=== PATIENT | male | born 1945 | race Hispanic/Latino ===

== ENCOUNTER 2022-02-25 09:11 | Observation (INO) | payer OTHER ==
--- NOTE | 2022-02-20 15:57 | RAD REPORT ---
EXAM DESCRIPTION: RAD - Chest Pa And Lat (2 Views) - 02/20/2022 3:31 pm CLINICAL HISTORY: pre op for surgery Chest pain. COMPARISON: Chest Pa And Lat (2 Views) dated 06/20/2019; CHEST SINGLE VIEW dated 04/03/2008 TECHNIQUE: PA and lateral views of the chest were obtained. FINDINGS: The lungs are hyperexpanded compatible with COPD. The heart is upper limit of normal in si ze. No fracture or aggressive bony process. IMPRESSION: COPD without acute process identified. The USPSTF recommends annual screening for lung cancer with low-dose CT (LDCT) in adults aged 50 to 8 0 years who have a 20 pack-year smoking history and currently smoke or have quit within the past 15 y ears.
[2022-02-20 15:58] LABS: Hematocrit 34.8 % (39.6-49.0); Lymphocytes % 21.5 % (15.3-44.8); MPV 8.1 fL (7.6-11.3); RBC Red Blood Cell Count 4.29 M/uL (4.33-5.43)
[2022-02-20 15:59] LABS: Protime INR 1.52
[2022-02-20 16:04] LABS: Potassium 4.7 mmol/L (3.5-5.1)
[~2022-02-25 09:11] MED LIST: AMPICILLIN SODIUM 2 GM in NA CHLORIDE 0.9% 100 ML IVPB ONE; Gentamicin Inj 240 MG in NA CHLORIDE 0.9% 100 ML IVPB ONE
[2022-02-25] MEDS ORDERED: NA CHLORIDE 0.9% 1,000 ML ONE (09:34)
[2022-02-25] MEDS ORDERED: LIDOCAINE 1% MPF 5 ML VIAL ONE (12:06)
[2022-02-25] MEDS ORDERED: propofoL 200 MG/20 ML VIAL IV ONE (12:06)
[2022-02-25] MEDS ORDERED: FENTANYL CITR 100 MCG/2 ML ONE ×2 (12:06→13:33)
[2022-02-25] MEDS ORDERED: NS 0.9% VIAL 10 ML ONE (12:48)
[2022-02-25] MEDS ORDERED: EPHEDRINE SULF 50 MG/ML VIAL ONE (12:48)
[2022-02-25] MEDS ORDERED: dexAMETHasone 10 MG/ML VIAL ONE (12:49)
[2022-02-25] MEDS ORDERED: KETOROLAC 30 MG/ML INJ ONE (12:49)
[2022-02-25] MEDS ORDERED: ONDANSETRON 4 MG/2 ML VIAL ONE (13:02)
[2022-02-25] MEDS ORDERED: ROCURONIUM 50 MG/5 ML VIAL IV ONE (13:02)
[2022-02-25] MEDS ORDERED: Mastisol Adhesive Liq ONE (14:55)
[2022-02-25] MEDS ORDERED: OPIUM/BELLADONNA SUPPOS (30-16.2 MG) PR ONE ×2 (15:35→16:00)
[2022-02-25 16:03] VITALS: O2SAT 98
[2022-02-25] MEDS ORDERED: CODEINE 30MG/APAP 300MG TAB ONE (17:09)
[2022-02-25] MEDS ORDERED: Magnesium Sulfate 2gm IVPB 2 G/50 ML BAG IV ONE (17:52)
[2022-02-25] MEDS ORDERED: CODEINE 30MG/APAP 300MG TAB PO PRN (17:52)
[2022-02-25] MEDS ORDERED: ONDANSETRON 4 MG/2 ML VIAL IV PRN (17:52)
[2022-02-25] MEDS ORDERED: SODIUM CHL 0.9% IRR SOLN 2000 ML IRR SCH (18:00)
[2022-02-25] MEDS ORDERED: GLUCAGON 1 MG/VIAL IM PRN (18:17)
[2022-02-25] MEDS ORDERED: D50W 25 GM/50 ML SYRINGE IV PRN (18:17)
--- OUTSIDE RECORDS SUMMARY | 2022-02-25 18:51 | XMS REPORT | Continuity of Care Document ---
:1945 Author Organization [facility] t Address [address] [place] [address] Care Team Providers Name Role Phone Unavailable Unavailable Unavailable Problems This patient has no known problems. Allergies, Adverse Reactions, Alerts This patient has no known allergies or adverse reactions. Medications This patient has no known medications. Procedures This patient has no known procedures. Encounters Start End Encounter Admission Attending Care Care Encounter Source Date/Time Date/Time Type Type Clinicians Facility Department ID 2022-02-18 Outpatient [facility] [id number] [facility] 11:29:02 [id number] 2022-01-16 Outpatient [facility] [id number] [facility] 13:08:02 [id number] [facility] 2021-11-20 Outpatient [facility] [id number] [facility] 14:25:16 [id number] [facility] 2022-01-16 2022-01-16 ambulatory [facility] [id number] [facility] 2021-11-19 2021-11-19 ambulatory [facility] [id number] [facility] 2021-11-05 2021-11-05 ambulatory [facility] [id number] [facility] 2021-10-31 2021-10-31 ambulatory [facility] [id number] [facility] 2021-10-22 2021-10-22 ambulatory [facility] [id number] [facility] 2021-10-17 2021-10-17 ambulatory [facility] [id number] [facility] 2021-10-14 2021-10-14 amb[facility] [id number] [facility] 2021-10-09 2021-10-09 ambulatory [facility] [id number] [facility]00 [facility] Results This patient has no known results.
[2022-02-25] MEDS: NA CHLORIDE 0.9% 1,000 ML IV SCH (18:53)
[2022-02-25] MEDS ORDERED: SODIUM CHL 0.9% IRR SOLN 2000 ML IRR PRN (18:58)
[2022-02-25] MEDS ORDERED: ATORVASTATIN 40 MG TAB PO SCH (21:00)
[2022-02-25] MEDS: INSULIN -REGULAR HUMAN 50 UNIT/0.5 ML ML SQ SCH (21:59)
[2022-02-25 23:24] VITALS: BMI 39.9
[2022-02-26] MEDS: NA CHLORIDE 0.9% 1,000 ML IV SCH ×2 (03:35→11:19)
[2022-02-26] MEDS ORDERED: METOPROLOL XL 100 MG TAB PO SCH (06:00)
[2022-02-26 06:01] LABS: Absolute Lymphocytes (CBC) 0.8 K/uL (0.7-4.9); Hematocrit 34.3 % (39.6-49.0); Lymphocytes % 6.2 % (15.3-44.8); MPV 7.8 fL (7.6-11.3)
[2022-02-26 06:06] LABS: Phosphorus 2.3 mg/dL (2.5-4.9); Potassium 4.6 mmol/L (3.5-5.1)
[2022-02-26] MEDS: INSULIN -REGULAR HUMAN 50 UNIT/0.5 ML ML SQ SCH ×2 (07:30→12:05)
[2022-02-26] MEDS ORDERED: GLIMEPIRIDE 2 MG TABLET PO SCH (08:00)
[2022-02-26] MEDS ORDERED: FUROSEMIDE 20 MG/ 2ML VIAL IV ONE (08:05)
[2022-02-26 08:06] LABS: Blood Morphology Comment NOT SEEN (NOT SEEN); Platelet Estimate ADEQ; Platelets, Giant FEW; White Blood Cell Scan OK (OK)
[2022-02-26] MEDS ORDERED: VALSARTAN 160 MG TAB PO SCH (09:00)
[2022-02-26 12:00] VITALS: BP 110/61; TEMP 98.7
[2022-02-26 12:43] LABS: Potassium 4.6 mmol/L (3.5-5.1)
--- NOTE | 2022-02-26 12:43 | OP ---
Surgeon: LJ FRANCO Preoperative Diagnoses: 1.BPH with lower urinary tract obstruction. 2.Detrusor instability. Postoperative Diagnoses: 1.BPH with lower urinary tract obstruction. 2.Detrusor instability. Principal Procedures: 1.Bipolar transurethral resection of the prostate. 2.Cystoscopy and right ureteral stent placement tethered. Indication For Procedure: Mr. Gallego is a 76-year-old gentleman with type 2 diabetes, hyperlipidem ia, atrial fibrillation, on Xarelto, who stopped it 5 days ago and initially presented with gross hem aturia, but no sign of urothelial malignancy or stone, but only complex renal cysts, in the setting o f residual significant lateral lobar hypertrophy seen cystoscopically. He had previously undergone p rior TURP by Dr. Helton with severe residual lower urinary tract obstructive symptoms, but also signif icant detrusor instability observed on urodynamics evaluation. As a result, the patient was counsele d extensively about the potential for urge incontinence postoperatively and the need for eventual med ical management once we relieved the obstruction. He agreed and proceeds and presents today for eval uation. Procedure In Detail: The patient was consented in the preoperative holding area before being transfe rred to the operative suite, where general anesthesia was induced. He was given ampicillin and genta micin 240 mg IV antimicrobial prophylaxis, and pneumo boots were provided for DVT prophylaxis. He wa s placed in the lithotomy position, padded, and secured to the table appropriately. His genitalia we re prepped using Hibiclens and he was draped in standard fashion. The case was begun using urethral sounds to dilate the meatus and fossa navicularis to 30-Romanian and then using the 26-Romanian resectosc ope and the visual obturator, his urethra was traversed and bladder entered with ease. There was sti ll significant residual lateral lobar hypertrophy with some anterior lobar overhang as well as median lobar projection abutting the ureteral orifices bilaterally with an elevated median bar down to the level of the verumontanum. As a result, I began the case with the ureteral orifices under direct vis ion and resected the projecting median lobe until it was flat with the bladder neck at the level of t he trigone. The remainder of the median lobe within the central portion was resected and then I rese cted the median bar to create a smooth trough down to the verumontanum. Once this was done, I then t urned my attention to the left lateral lobe and resected the lateral lobe in stages given the very lo ng prostatic urethral length, likely at least 4-5 cm in length. As a result, I resected the intraves ically projecting component of the lateral lobe on the left side at the bladder neck and taking that to the anterior lobar overhang. I then resected the median component of the lateral lobar entry uret hral projection before then resecting the overlapping component of the apical lateral lobar hypertrop hy until the left side of the prostate was completely resected and widely patent. Ellik evacuation o f the chips was performed, and a careful search for bleeding and fulguration was likewise performed u ntil the left side was virtually hemostatic. I then turned my attention to the right side where I pe rformed a similar resection starting at the bladder neck and then at the apex of the prostate, removi ng the intervening tissue from the verumontanum up to the anterior zone of the prostate until the pro static fossa from the verumontanum until the bladder neck was widely patent. All prostate chips agai n, were Ellik evacuated from the bladder, and fulguration was performed extensively due to lots of oo zing vessels. Continued resection was then performed for any residual tissue bulging into the prosta tic urethral lumen in order to create a smooth channel throughout. In the end, after about an hour a nd 45 minutes of resection, the channel was nicely created and completely hemostatic with the bladder decompressed. With efforts to fulgurate some capillary bleeding at the cut edge of the bladder neck from the prostatic urethra with the bladder decompressed, the upper part of the loop electrode did c ontact the collapsed bladder, which was now invaginating into the bladder neck at this point, resulti ng in mild fulguration of the right ureteral orifice. While it remained patent and was effluxing uri ne, to avoid the development of stenosis later and hydronephrosis, I then removed the resectoscope an d switched it out for a 22-Romanian cystoscope before utilizing a Sensor wire and a 5-Romanian ureteral a ccess catheter to gain access into the collecting system. I then passed a 6-Romanian x 26 cm double-J right ureteral stent with ease and a coil was formed within his bladder left on its tether. Fluorosc opic imagery was not used in this case; but the stent was simply placed under seal and did go up very smoothly and easily. As a result, since there was no ongoing bleeding, I removed the cystoscope and placed a 22-Romanian 3-way Raman catheter into his bladder with ease. Approximately 50 cc of sterile water was placed in the balloon, and the tether of the right ureteral stent was then taped to the hea d of his penis using Mastisol and Steri-Strips. The patient was then taken out of the lithotomy posi tion, the catheter was placed to moderate traction, and he was awakened from general anesthesia befor e being transferred to a stretcher. He was then transferred to the recovery room in good condition. Complications: Mild fulguration of the right ureteral orifice, nonobstructive. Discharge Disposition: He should follow up in the Urology Clinic on Thursday for catheter removal and voiding trial. Since the urodynamics evaluation done preoperatively did demonstrate definitive detru sor instability, he will likely benefit from post catheter removal anticholinergic therapy; so I will send a prescription for oxybutynin 5 mg extended release tablets for him to start taking after the c atheters were removed once he demonstrates he is able to void adequately. The stent on a tether may also be removed simultaneous with the catheter removal on Thursday or Thursday of next week. I will dis charge him with 7 days of an antimicrobial for prophylaxis. LIANG/ROB Voice ID: [id number] Report ID: [id number]
--- NOTE | 2022-02-26 12:52 | HP ---
Date of Admission: 02/25/2022 Chief Complaint: Right lower extremity fasciculation or uncontrollable movements. History Of Present Illness: Mr. Gallego is a 76-year-old gentleman with hypertension, type 2 diabet es, and hyperlipidemia, who presented for management of obstructive urinary symptoms due to BPH with associated detrusor instability, resulting in significant frequency and urgency as well as urge incon tinence. He underwent bipolar transurethral resection of the prostate today, which was relatively un complicated, only requiring a right ureteral stent due to gentle fulguration of the mucosa surroundin g the right ureteral orifice, with the case time lasting approximately 2 hours in total time, where t he patient was in the lithotomy position. He was then awakened from general anesthesia and transferr ed to the recovery room in good condition and was continued on continuous bladder irrigation with nor mal saline where his urine remained very light pink to clear. However, prior to discharge home, a co uple of hours later, the patient noted some relatively uncontrollable movements of his right lower ex tremity, mostly his foot, but he also felt like it was his lower leg as well. He would not be able t o stop the movements if he cognitively made an effort, but otherwise the fasciculations seem to occur without his direct control. He denied any associated pain or discomfort force or associated swellin g of the lower extremity that he could observe. Past Medical History: Hypertension; type 2 diabetes; hyperlipidemia; atrial fibrillation, on Xarelto . Past Surgical History: The patient had a history of a prior transurethral resection of the prostate performed by Dr. Helton. Allergies: NO KNOWN DRUG ALLERGIES. Medications: As recorded. Physical Examination: General: The patient was well-appearing and in no acute distress. He was alert, awake, oriented x3. There was no dyspnea or signs of respiratory distress with him sitting in a reclined position within the stretcher. Abdomen: Nontender and nondistended. Genitourinary: His genitalia contained a 22-Greek 3-way urethral Raman catheter on a slow drip CBI with the efflux of urine being light pink. Extremities: On examination of the right lower extremity, the patient had normal sensation bilateral ly right relative to the left lower extremity, both to soft touch, and he had no tenderness to squeez ing of the calf declining any sign of Charisse sign. He had normal muscular strain with calf flexion an d extension. Assessment And Recommendations: Mr. Gallego is a 76-year-old gentleman with diabetes type 2, hypert ension, hyperlipidemia, and atrial fibrillation, previously on Xarelto, now status post extensive bip olar transurethral resection of the prostate due to significantly enlarged prostate with detrusor ins tability causing obstructive and irritative lower urinary symptoms, now with right lower extremity fa sciculations, suspected to be of a neuropathic origin. I consulted Dr. Bazan, neurologist, who instructed that this was very likely to have been from the time spent in lithotomy position with the anatomy unique to the right lower extremity as well as his diabetes likely subjecting the nerves of that lower extremity to a degree of impact that is now resu lting in the fasciculations. He estimated this would likely resolve in short order, within the next few hours, and recommended magnesium therapy. As a result, I did the followin.Magnesium sulfate 2 g IV x1 dose. 2.He would be continued on normal saline IV fluids and CBI with intermittent manual irrigation as ne sandraary. 3.Tylenol with Codeine will be provided for pain management as necessary, though the patient was hav ing no pain, and Zofran is available for antiemetic if necessary. 4.He will be given a diabetic diet. 5.We will check labs in the morning including a CBC, BMP, magnesium, phosphorus, and ionized calcium levels. 6.Should his fasciculations continue or he have other sign of pain, Dr. Bazan would be requested to formally consult in the morning. 7.We will also request the nurses to perform every 4 hours neurovascular checks throughout the even ng and notify me if any progressive worsening develops. We anticipate discharge tomorrow after a period of observation with the urethral Rmaan catheter in pl [place]. LIANG/MODL Voice ID: [id number]
--- NOTE | 2022-02-26 13:22 | P.PN ---
Date of Service: 02/26/22 76-year-old gentleman type II diabetic with atrial fibrillation on Xarelto, hypertension and hyperlipidemia admitted overnight for observation due to complaints of right lower extremity fasciculations in the immediate postoperative period. He acknowledges this morning that since arrival to the floor last night, he has had no further fasciculations. He had normal muscular strength and sensation throughout. He was given 2 g of magnesium sulfate, and his magnesium level this morning is 2.0. Incidentally observed was hyponatremia with a sodium of 125. The procedure was performed in a bipolar fashion, using normal saline, and he was admitted overnight with normal saline running at 125 cc an hour. As a result, I recommended 20 mg of Lasix, which was administered IV this morning, and we repeated his sodium at noon. Repeat sodium minimally improved at 126. Patient was otherwise comfortable and mentating normally, communicating appropriately. Examination: Alert, awake, oriented x3 in no acute distress No dyspnea or signs of respiratory distress Comfortable and well-appearing Abdomen soft, nontender Urethral catheter in place draining light pink urine on slow drip CBI No Homans' sign Assessment and recommendations: 76-year-old gentleman type II diabetic with atrial fibrillation on Xarelto, hypertension and hyperlipidemia with right lower extremity fasciculations postoperatively that resolved without sensory deficit, and with normal mentation throughout but with mild hyponatremia persistent despite 20 mg IV Lasix, postop day 1 status post bipolar transurethral resection of the prostate (procedure done in saline). -We will request the opinion of the hospital director of speech pathology to determine neck steps in evaluation and appropriateness for discharge given his ongoing hyponatremia -Otherwise, he is eligible for discharge from a surgical perspective with the Raman catheter in place. -Prescriptions already sent for antibiotics, Bactrim, as well as Tylenol 3 and oxybutynin for him to take once the catheter is removed if he has urinary frequency/urgency and urge incontinence.
--- NOTE | 2022-02-26 14:10 | P.CNS ---
Date of Consult: 02/26/22 Reason for Consult: Hyponatremia Requesting Physician: Xavier Diaz Chief Complaint: Bipolar TURP History of Present Illness: Pt is a 76yo who was admitted to the hospital for a TURP. Incidentally, pt with hyponatremia. Allergies No Known Allergies Allergy (Verified 02/25/22 09:54) Home medications list reviewed: Yes Home Medications: Atorvastatin Calcium [Lipitor] 40 mg PO BEDTIME 08/24/17 Glimepiride 2 mg PO DAILY 08/24/17 Irbesartan [Avapro] 300 mg PO DAILY 08/24/17 Metoprolol Succinate [Toprol Xl] 25 mg PO [id number] 08/24/17 Rivaroxaban [Xarelto] 20 mg PO DAILY 08/24/17 Tamsulosin [Flomax*] 0.4 mg PO BEDTIME 08/24/17 Aspirin [Aspirin EC 81 MG] 1 tab PO DAILY 02/20/22 Codeine/APAP [Tylenol W/Codeine #3 tab] 1 tab PO Q6HP PRN #12 tab 02/25/22 Oxybutynin Chloride [Ditropan Xl] 5 mg PO DAILY PRN #30 tab.er.24 02/25/22 Sodium Chloride Tab [Sodium Chloride*] 1 gm PO BID #60 tab 02/26/22 - Past Medical/Surgical History Diabetic: Yes -: Diabetes -: HTN -: HLD -: BPH -: Stent placement 10 yrs ago -: TURP - Family History Father Family History: Reviewed- Non-Contributory - Social History Smoking Status: Current every day smoker Alcohol use: No CD- Drugs: No Caffeine use: Yes Place of Residence: Home Review of Systems 10-point ROS is otherwise unremarkable Physical Examination Temp Pulse Resp BP Pulse Ox 98.7 F 87 20 110/61 100 02/26/22 11:59 02/26/22 11:59 02/26/22 11:59 02/26/22 11:59 02/26/22 11:59 General: Alert, In no apparent distress, Oriented x3 HEENT: Atraumatic, PERRLA, Mucous membr. moist/pink, EOMI, Sclerae nonicteric Neck: Supple, 2+ carotid pulse no bruit, No LAD, Without JVD or thyroid abnormality Respiratory: Clear to auscultation bilaterally, Normal air movement Cardiovascular: Regular rate/rhythm, Normal S1 S2 Gastrointestinal: Normal bowel sounds, No tenderness Musculoskeletal: No tenderness Integumentary: No rashes Neurological: Normal gait, Normal speech, Normal tone, Normal affect Lymphatics: No axilla or inguinal lymphadenopathy Laboratory Data (last 24 hrs) 02/26/22 11:39: Sodium 126 L, Potassium 4.6, BUN 21 H, Creatinine 1.70 H, Glucose 232 H 02/26/22 05:35: Sodium 125 L, Potassium 4.6, BUN 22 H, Creatinine 1.46 H, Gluc ose 179 H, Phosphorus 2.3 L, Magnesium 2.0 02/26/22 05:35: WBC 12.2 H D, Hgb 11.3 L, Hct 34.3 L, Plt Count 276 - Problems (1) Hyponatremia Current Visit: Yes Status: Acute (2) HTN (hypertension) Current Visit: Yes Status: Acute (3) BPH loc w urin obs/LUTS Current Visit: Yes Status: Acute
== END 2022-02-26 14:45 | disposition home or self-care (01) ==
LOC: OR 09:11 → 2ND 18:48
PROVIDERS: ADMIT Urology; ATTEND Urology
PROC: 0VT08ZZ Resection of Prostate, Via Natural or Artificial Opening Endoscopic (ICD-10-PCS; 2022-02-25)
PROC: 0T768DZ Dilation of Right Ureter with Intraluminal Device, Via Natural or Artificial Opening Endoscopic (ICD-10-PCS; principal; 2022-02-25 10:45)
DX: N40.1 Benign prostatic hyperplasia with lower urinary tract symptoms (principal); N13.8 Other obstructive and reflux uropathy; N99.81 Other intraoperative complications of genitourinary system; Y65.8 Other specified misadventures during surgical and medical care; Y82.8 Other medical devices associated with adverse incidents; Y92.234 Operating room of hospital as the place of occurrence of the external cause; N32.81 Overactive bladder; N39.41 Urge incontinence; R25.3 Fasciculation; E87.1 Hypo-osmolality and hyponatremia; I48.91 Unspecified atrial fibrillation; I10 Essential (primary) hypertension; E11.9 Type 2 diabetes mellitus without complications; N28.1 Cyst of kidney, acquired; E78.5 Hyperlipidemia, unspecified; I25.10 Atherosclerotic heart disease of native coronary artery without angina pectoris; G47.33 Obstructive sleep apnea (adult) (pediatric); E66.9 Obesity, unspecified; Z68.39 Body mass index [BMI] 39.0-39.9, adult; F17.200 Nicotine dependence, unspecified, uncomplicated; Z79.01 Long term (current) use of anticoagulants; Z79.82 Long term (current) use of aspirin; Z79.899 Other long term (current) drug therapy; Z85.038 Personal history of other malignant neoplasm of large intestine; Z20.822 Contact with and (suspected) exposure to COVID-19
CPT/HCPCS: 87088; 85025 ×2; 87086; 80048 ×3; 36415 ×2; 83735; 84100; 85610; 82947 ×5; 88305; 82330; 71046; 52332; 52630; U0002; J2704; J1940; J1815 ×2; J1580; J3010 ×2; J1100; J3475; J7030 ×4; J2405; J0290; G0379; G0378 ×2

== ENCOUNTER 2022-03-08 01:55 | Emergency (ER) | payer OTHER ==
--- OUTSIDE RECORDS SUMMARY | 2022-03-08 01:58 | XMS REPORT | Continuity of Care Document ---
:1945 Author Organization [facility] t Address [address] [address] Care Team Providers Name Role Phone Unavailable Unavailable Unavailable Problems This patient has no known problems. Allergies, Adverse Reactions, Alerts This patient has no known allergies or adverse reactions. Medications This patient has no known medications. Procedures This patient has no known procedures. Encounters Start End Encounter Admission Attending Care Care Encounter Source Date/Time Date/Time Type Type Clinicians Facility Department ID 2022-02-18 Outpatient [facility] [id number] [facility] 11:29:02 [facility] 2022-01-16 Outpatient [facility] [id number] [facility] 13:08:02 [facility] 2021-11-20 Outpatient [facility] [id number] [facility] 14:25:16 [id number] [facility] 2022-01-16 2022-01-16 ambulatory [facility] [id number] [facility] 00:00:00 00:00:00 [facility] 2021-11-19 2021-11-19 ambulatory [facility] [id number] [facility] 00:00:00 00:00:00 [facility] 2021-11-05 2021-11-05 ambulatory [facility] [id number] [facility] 00:00:00 00:00:00 [facility] 2021-10-31 2021-10-31 ambulatory [facility] [id number] [facility] 00:00:00 00:00:00 [facility] 2021-10-22 2021-10-22 ambulatory [facility] [id number] [facility] 00:00:00 00:00:00 [facility] 2021-10-17 2021-10-17 ambulatory [facility] [id number] [facility] 00:00:00 00:00:00 [facility] 2021-10-14 2021-10-14 ambulatory [facility] [id number] [facility] 00:00:00 00:00:00 [facility] 2021-10-09 2021-10-09 ambulatory [facility] [id number] [facility] 00:00:00 00:00:00 [facility] Results This patient has no known results.
[2022-03-08] MEDS ORDERED: LIDOCAINE VISCOUS 2% SOLN 15 ML UDC ONE (02:36)
[2022-03-08 02:39] LABS: Absolute Lymphocytes (CBC) 0.8 K/uL (0.7-4.9); Hematocrit 25.4 % (39.6-49.0); Lymphocytes % 7.5 % (15.3-44.8); MPV 6.8 fL (7.6-11.3); RBC Red Blood Cell Count 3.19 M/uL (4.33-5.43)
[2022-03-08 02:51] LABS: Potassium 4.2 mmol/L (3.5-5.1)
--- NOTE | 2022-03-08 03:29 | EDPHYS ---
Physician Documentation [facility] Name: Marshal Gallego Age: 76 yrs Sex: Male : 1945 Arrival Date: 03/08/2022 Time: 01:59 Bed 4 Private MD: ED Physician De Fernandez HPI: 03/08 03:29 This 76 yrs old Male presents to ER via EMS with complaints of unable to ms3 urinate. 03:29 The patient presents with urinary symptoms, retention. Onset: The symptoms/episode ms3 began/occurred 12 PM. Modifying factors: The symptoms are alleviated by nothing, the symptoms are aggravated by nothing. Associated signs and symptoms: Pertinent positives: abdominal pain, hematuria, Pertinent negatives: fever. Severity of symptoms: At their worst the symptoms were moderate, a " 6" out of "10", in the emergency department the symptoms are unchanged. Historical: - Allergies: 02:01 No Known Allergies; sm5 - PMHx: 02:01 Diabetes mellitus; Hypertensive disorder; sm5 - PSHx: 02:01 TURP; sm5 - Immunization history:: Client reports receiving the 2nd dose of the Covid vaccine. - Social history:: Smoking status: Patient denies any tobacco usage or history of. Patient/guardian denies using alcohol. ROS: 03:29 Constitutional: Negative for fever, and chills. Cardiovascular: Negative for chest ms3 pain, and palpitations. Respiratory: Negative for shortness of breath, cough, wheezing, and pleuritic chest pain, MS/Extremity: Negative for injury and deformity, Skin: Negative for injury, rash, and discoloration, Neuro: Negative for headache, weakness, numbness, tingling. 03:29 Abdomen/GI: Positive for 03:29 : Positive for difficulty urinating. ms3 03:29 All other systems are negative. Exam: 03:29 Constitutional: This is a well developed, well nourished patient who is awake, alert, ms3 and in no acute distress. Head/Face: Normocephalic, atraumatic. Chest/axilla: Normal chest wall appearance and motion. Nontender with no deformity. Cardiovascular: Regular rate and rhythm with a normal S1 and S2. No gallops, murmurs, or rubs. Normal PMI, no JVD. No pulse deficits. Respiratory: Lungs have equal breath sounds bilaterally, clear to auscultation and percussion. No rales, rhonchi or wheezes noted. No increased work of breathing, no retractions or nasal flaring. Skin: Warm, dry with normal turgor. Normal color with no rashes, no lesions, and no evidence of cellulitis. Psych: Awake, alert, with orientation to person, place and time. Behavior, mood, and affect are within normal limits. 03:29 Abdomen/GI: Inspection: abdomen appears normal, Bowel sounds: normal, Palpation: mild abdominal tenderness, in the suprapubic area. Vital Signs: 02:00 BP 180 / 85; Pulse 107; Resp 18; Temp 97.8(O); Pulse Ox 99% on R/A; Weight 126.1 kg; sm5 Height 5 ft. 11 in. (180.34 cm); Pain 10/10; 02:30 BP 169 / 84; Pulse 87; Resp 18; Pulse Ox 100% on R/A; sm5 03:24 BP 165 / 90; Pulse 96; Resp 18; Temp 97.8; Pulse Ox 96% on R/A; 2 04:30 BP 154 / 70; Pulse 79; Resp 17; Pulse Ox 100% on R/A; sm5 05:30 BP 152 / 70; Pulse 92; Resp 18; Pulse Ox 99% on R/A; 5 02:00 Body Mass Index 38.77 (126.10 kg, 180.34 cm) 5 MDM: 02:06 Patient medically screened. ms3 02:20 ED course: Dr Diaz called. no answer.. ms3 03:29 Differential diagnosis: nonspecific abdominal pain, UTI, urinary retention. Data ms3 reviewed: vital signs, nurses notes. Data interpreted: Pulse oximetry: on room air is 96 %. Interpretation: normal. Counseling: I had a detailed discussion with the patient and/or guardian regarding: the historical points, exam findings, and any diagnostic results supporting the discharge/admit diagnosis, lab results, the need to transfer to another facility. ED course: Discussed need for transfer with patient and his . They understand/ agree with plan. Patient remains in stable condition.. 03:29 ED course: Attempted to call Dr Diaz and voicemail left.. ms3 03/08 02:10 Order name: CBC with Diff; Complete Time: 02:52 ms3 03/08 02:10 Order name: BMP; Complete Time: 03:08 ms3 03/08 03:16 Order name: Osmolality, Serum; Complete Time: 04:28 la1 03/08 03:16 Order name: Urine Osmolality; Complete Time: 04:44 la1 03/08 03:16 Order name: Urine Sodium Random; Complete Time: 04:12 la1 03/08 03:16 Order name: Urine Potassium Random; Complete Time: 04:12 la1 03/08 03:19 Order name: COVID-19 SARS RT PCR (Document "Date of Onset" if Symptomatic); Complete la Time: 04:44 03/08 03:51 Order name: Urine Microscopic Only; Complete Time: 04:12 EDMS 03/08 04:14 Order name: Urine Culture EDMS Administered Medications: 05:46 Drug: morphine 4 mg Route: IVP; Site: right antecubital; sm5 06:37 Follow up: Response: No adverse reaction sm5 Disposition Summary: 03/08/22 03:28 Transfer Ordered Transfer Location: Other Acute Care Facility ms3 Reason: Higher level of care ms3 Condition: Stable ms3 Problem: new ms3 Symptoms: are unchanged ms3 Accepting Physician: Arturo Rueda(03/08/22 06:38) sm5 Diagnosis - Hyponatremia ms3 - hematuria ms3 - urine retention ms3 Forms: - Medication Reconciliation Form ms3 - SBAR form ms3 Signatures: Dispatcher [employer] EDMS Demond Shell FNP-[facility] DO DO ms3 Mihaela Mercado RN RN sm5 Corrections: (The following items were deleted from the chart) 03:31 03:29 Constitutional: Negative for fever, and chills. Cardiovascular: Negative for ms3 chest pain, and palpitations. Respiratory: Negative for shortness of breath, cough, wheezing, and pleuritic chest pain, : Negative for injury, bleeding, discharge, and swelling, MS/Extremity: Negative for injury and deformity, Skin: Negative for injury, rash, and discoloration, Neuro: Negative for headache, weakness, numbness, tingling. ms3 03:51 02:11 URINALYSIS+U.LAB.BRZ ordered. EDMS EDMS 06:38 03:28 Marybeth, Arturo ms3 sm5
--- NOTE | 2022-03-08 03:29 | ER ---
Nurse's Notes [facility] Name: Marshal Gallego Age: 76 yrs Sex: Male : 1945 Arrival Date: 03/08/2022 Time: 01:59 Bed 4 Private MD: Diagnosis: Hyponatremia;hematuria;urine retention Presentation: 03/08 02:00 Chief complaint: EMS states: pt had TURP on 02/25, currie removed a few days later. pt sm5 stated he has been having blood clots when urinating. at 1pm, pt stated he had burning when urinating and has been unable to urinate since and has pain in his groin area. Coronavirus screen: Vaccine status: Patient reports receiving the 2nd dose of the covid vaccine. Ebola Screen: No symptoms or risks identified at this time. Initial Sepsis Screen: Does the patient meet any 2 criteria? No. Patient's initial sepsis screen is negative. Does the patient have a suspected source of infection? No. Patient's initial sepsis screen is negative. Risk Assessment: Do you want to hurt yourself or someone else? Patient reports no desire to harm self or others. Onset of symptoms was March 08, 2022. 02:00 Method Of Arrival: EMS: [facility] 02:00 Acuity: LUCILA 3 sm5 Triage Assessment: 02:02 General: Appears in no apparent distress. Behavior is cooperative. Pain: Complains of sm5 pain in pelvis. Neuro: No deficits noted. Arnett Agitation-Sedation Scale (RASS): 0 - Alert and Calm Level of Consciousness is awake, alert, obeys commands, Oriented to person, place, time, situation. Cardiovascular: No deficits noted. Capillary refill < 3 seconds Patient's skin is warm and dry. Respiratory: No deficits noted. Airway is patent Trachea midline Respiratory effort is even, unlabored. : Reports inability to void, since 1pm blood clots. Historical: - Allergies: 02:01 No Known Allergies; sm5 - PMHx: 02:01 Diabetes mellitus; Hypertensive disorder; sm5 - PSHx: 02:01 TURP; sm5 - Immunization history:: Client reports receiving the 2nd dose of the Covid vaccine. - Social history:: Smoking status: Patient denies any tobacco usage or history of. Patient/guardian denies using alcohol. Screenin:04 Abuse screen: Denies threats or abuse. Denies injuries from another. Nutritional 5 screening: No deficits noted. Tuberculosis screening: No symptoms or risk factors identified. Fall Risk None identified. Assessment: 02:45 : Urine is harris blood. 5 03:45 Reassessment: No changes from previously documented assessment. Patient and/or family [facility] updated on plan of care and expected duration. Pain level reassessed. 04:50 Reassessment: No changes from previously documented assessment. Patient is alert, 5 oriented x 3, equal unlabored respirations, skin warm/dry/pink. 05:52 Reassessment: No changes from previously documented assessment. 5 Vital Signs: 02:00 BP 180 / 85; Pulse 107; Resp 18; Temp 97.8(O); Pulse Ox 99% on R/A; Weight 126.1 kg; 5 Height 5 ft. 11 in. (180.34 cm); Pain 10/10; 02:30 BP 169 / 84; Pulse 87; Resp 18; Pulse Ox 100% on R/A; sm5 03:24 BP 165 / 90; Pulse 96; Resp 18; Temp 97.8; Pulse Ox 96% on R/A; mw2 04:30 BP 154 / 70; Pulse 79; Resp 17; Pulse Ox 100% on R/A; sm5 05:30 BP 152 / 70; Pulse 92; Resp 18; Pulse Ox 99% on R/A; sm5 02:00 Body Mass Index 38.77 (126.10 kg, 180.34 cm) 5 ED Course: 01:59 Patient arrived in ED. 5 02:01 Triage completed. 5 02:03 Arm band placed on right wrist. sm5 02:04 Mihaela Mercado, RN is Primary Nurse. 5 02:04 Patient has correct armband on for positive identification. Bed in low position. Call [facility] light in reach. Side rails up X2. 02:06 eD Fernandez DO is Attending Physician. ms3 02:15 Inserted saline lock: 20 gauge in right antecubital area, using aseptic technique. 5 Blood collected. 02:30 3-way catheter inserted, using sterile technique, 20 Fr. Specimen obtained. 5 03:21 initiated a transfer with Raysa Krystal from [facility]. mw2 03:30 Bladder scan completed. 555ml after 700ml of output already in currie and no longer sm5 draining. Dr Fernandez made aware. Bladder irrigated via Currie with 50 ml normal saline returned nothing Patient tolerated well. 03:[address] Fernandez with the Urologist and Hospitalist from [facility]. mw2 04:38 administrative approval given by Raysa Rice/ patient has been accepted to [address] ICU / Dr. Rueda accepted the patient in transfer/report to be called to [phone]. 06:25 No provider procedures requiring assistance completed. Patient transferred, IV remains sm5 in place. Administered Medications: 05:46 Drug: morphine 4 mg Route: IVP; Site: right antecubital; sm5 06:37 Follow up: Response: No adverse reaction sm5 Medication: 06:25 VIS not applicable for this client. sm5 Outcome: 03:28 ER care complete, transfer ordered by ms3 06:37 Transferred by ground EMS to other acute care facility: [facility]. Transfer sm5 form completed. X-rays sent w/ patient. 06:37 Condition: stable 06:37 Instructed on the need for transfer. 06:38 Patient left the ED. sm5 Signatures: Mitch Rod mw2 De Fernandez DO DO ms3 Mihaela Mercado, RN RN sm5
[2022-03-08 04:11] LABS: Urine Amorphous Sediment 1+ /HPF (NONE SEEN); Urine Bacteria >50 /HPF (NONE SEEN); Urine Mucus 2+ /HPF (NONE SEEN); Urine RBC TNTC /HPF (NONE SEEN)
[2022-03-08] MEDS ORDERED: MORPHINE 4 MG/ML SYR ONE (05:49)
[2022-03-08 17:53] VITALS: TEMP 97.8
[2022-03-08 17:59] VITALS: BP 152/70; O2SAT 99
== END 2022-03-08 06:38 ==
LOC: ER 01:55
DX: R33.9 Retention of urine, unspecified (principal); E87.1 Hypo-osmolality and hyponatremia; R31.9 Hematuria, unspecified; E11.9 Type 2 diabetes mellitus without complications; I10 Essential (primary) hypertension; Z20.822 Contact with and (suspected) exposure to COVID-19
CPT/HCPCS: 87088; 85025; 87086; 80048; 36415; 84132; 84300; 81015; 83930; 83935; 51700; 96374; 99285; U0003

== ENCOUNTER 2022-03-21 07:39 | Inpatient (IN) | payer OTHER ==
--- OUTSIDE RECORDS SUMMARY | 2022-03-21 07:44 | XMS REPORT | Continuity of Care Document ---
:1945 Author Organization [facility] t Address [address] [place] [address] Care Team Providers Name Role Phone MARKY Attending Clinician Unavailable CARRIE VALENTINE Attending Clinician Unavailable MARKY Admitting Clinician Unavailable Payers Payer Name Policy Type Policy Number Effective Date Expiration Date S neetu MEDICARE A B [id number] 2010 00:00:00 [employer] INDEMNITY [id number] 2018 NON CONTR 00:00:00 Problems This patient has no known problems. Allergies, Adverse Reactions, Alerts Allergy Allergy Status Severity Reaction(s) Onset Inactive Treating Comm ents Source Name Type Date Date Clinician NO KNOWN Allergy Active [facility] Medications This patient has no known medications. Vital Signs Vital Name Observation Time Observation Value Comments Source WEIGHT 2022-03-10 06:00:00 127.9 kg HEIGHT 2022-03-08 10:00:00 180.3 cm WEIGHT 2022-03-08 10:00:00 131.3 kg HEIGHT 2022-03-08 08:32:00 180.3 cm WEIGHT 2022-03-08 08:32:00 131.3 kg WEIGHT 2022-03-10 06:00:00 127.9 kg HEIGHT 2022-03-08 10:00:00 180.3 cm WEIGHT 2022-03-08 10:00:00 131.3 kg HEIGHT 2022-03-08 08:32:00 180.3 cm WEIGHT 2022-03-08 08:32:00 131.3 kg Procedures This patient has no known procedures. Encounters Start End Encounter Admission Attending Care Care Encounter Source Date/Time Date/Time Type Type Clinicians Facility Department ID 2022-02-18 Outpatient [facility] ST[facility] [id number] Common 11:29:02 [facility] 2022-01-16 Outpatient STLMLC STLMLC [id number] Common 13:08:02 [facility] 2021-11-20 Outpatient STLMLC STLMLC [id number] Common 14:25:16 [id number] [facility] 2022-03-14 2022-03-14 ambulatory STLMLC STLML[facility] [id number] Common 00:00:00 00:00:00 [facility] 2022-03-13 2022-03-13 ambulatory STLMLC STLMLC [id number] Common 00:00:00 00:00:00 [facility] 2022-03-08 2022-03-11 Inpatient ER NEGRO, [facility] [id number] [facility] 08:09:00 16:40:00 MARCELO 2022-03-03 2022-03-03 ambulatory STLMLC STLMLC [id number] Common 00:00:00 00:00:00 [facility] 2022-01-16 2022-01-16 ambulatory STLMLC STLMLC [id number] Common 00:00:00 00:00:00 [facility] 2021-11-19 2021-11-19 ambulatory STLMLC STLMLC [id number] Common 00:00:00 00:00:00 [facility] 2021-11-05 2021-11-05 ambulatory STLMLC STLMLC [id number] Common 00:00:00 00:00:00 [facility] 2021-10-31 2021-10-31 ambulatory STLMLC STLMLC [id number] Common 00:00:00 00:00:00 [facility] 2021-10-22 2021-10-22 ambulatory STLMLC STLMLC [id number] Common 00:00:00 00:00:00 [facility] 2021-10-17 2021-10-17 ambulatory STLMLC STLMLC [id number] Common 00:00:00 00:00:00 [facility] 2021-10-14 2021-10-14 ambulatory STLMLC STLMLC [id number] Common 00:00:00 00:00:00 [facility] 2021-10-09 2021-10-09 ambulatory STLMLC STLMLC [id number] Common 00:00:00 00:00:00 [facility] Results Test Description Test Time Test Comments Results Result Comments Source POCT-GLUCOSE METER 2022-03-11 15:24:36 Test Item Value Reference Range Interpretation Comme nts POC-GLUCOSE METER (BEAKER) 159 mg/dL 70-110 H : TESTED AT [facility] [address] [facility] (test code = 1538) [facility], [facility] [address]: Drums Teacher/Techni veda ID = [id number] for Marli Windy POCT-GLUCOSE [id number] 10:56:38 Test Item Value Reference Range Interpretation Comments POC-GLUCOSE METER 186 mg/dL 70-110 H : TESTED A T [facility] 1317 (BEAKER) (test code [facility] NT [facility], = 1538) [facility] 77 858: Drums Teacher/Techni veda ID = [id number] for Hirawaldo skyla [place] CBC W/PLT COUNT & AUTO [id number] 06:38:04 Test Item Value Reference Range Interpretation Comments WHITE BLOOD CELL COUNT (BEAKER) 10.7 K/ L 4.0-10.0 H (test code = 775) RED BLOOD CELL COUNT (BEAKER) 2.55 M/ L 4.20-5.80 L (test code = 761) HEMOGLOBIN (BEAKER) (test code = 6.9 GM/DL 13.0-16.8 L 410) HEMATOCRIT (BEAKER) (test code = 21.1 % 36.0-50.0 LL 411) MEAN CORPUSCULAR VOLUME (BEAKER) 82.7 fL 82.0-99.0 (test code = 753) MEAN CORPUSCULAR HEMOGLOBIN 27.1 pg 27.0-33.0 (BEAKER) (test code = 751) MEAN CORPUSCULAR HEMOGLOBIN CONC 32.7 GM/DL 32.0-36.0 (BEAKER) (test code = 752) RED CELL DISTRIBUTION WIDTH 15.4 % 12.0-15.0 H (BEAKER) (test code = 412) PLATELET COUNT (BEAKER) (test 279 K/CU MM 150-430 code = 756) MEAN PLATELET VOLUME (BEAKER) 9.0 fL 6.0-11.5 (test code = 754) NUCLEATED RED BLOOD CELLS 0 /100 WBC 0-0 (BEAKER) (test code = 413) NEUTROPHILS RELATIVE PERCENT 74 % (BEAKER) (test code = 429) LYMPHOCYTES RELATIVE PERCENT 14 % (BEAKER) (test code = 430) MONOCYTES RELATIVE PERCENT 6 % (BEAKER) (test code = 431) EOSINOPHILS RELATIVE PERCENT 4 % (BEAKER) (test code = 432) BASOPHILS RELATIVE PERCENT 1 % (BEAKER) (test code = 437) NEUTROPHILS ABSOLUTE COUNT 7.97 K/ L 1.80-8.00 (BEAKER) (test code = 670) LYMPHOCYTES ABSOLUTE COUNT 1.45 K/ L 1.48-4.50 L (BEAKER) (test code = 414) MONOCYTES ABSOLUTE COUNT (BEAKER) 0.67 K/ L 0.00-1.30 (test code = 415) EOSINOPHILS ABSOLUTE COUNT 0.45 K/ L 0.00-0.50 (BEAKER) (test code = 416) BASOPHILS ABSOLUTE COUNT (BEAKER) 0.07 K/ L 0.00-0.20 (test code = 417) IMMATURE GRANULOCYTES-RELATIVE 1 % 0-0 H PERCENT (BEAKER) (test code = 2801) (MANUAL DIFFERENTIAL)2022-03-11 06:38:04 Test Item Value Reference Range Interpretation Comments TOTAL COUNTED (BEAKER) (test code = 1351) WBC MORPHOLOGY (BEAKER) (test code = Normal 487) PLT MORPHOLOGY (BEAKER) (test code = Normal 486) ANISOCYTOSIS (BEAKER) (test code = 1+ few 961) POIKILOCYTES (BEAKER) (test code = 1+ few 966) BASIC METABOLIC [id number] 06:26:43 Test Item Value Reference Range Interpretation Comments SODIUM (BEAKER) (test 128 meq/L 135-148 L code = 381) POTASSIUM (BEAKER) 4.1 meq/L 3.6-5.5 (test code = 379) CHLORIDE (BEAKER) 97 meq/L 98-106 L (test code = 382) CO2 (BEAKER) (test 22 meq/L 20-29 code = 355) BLOOD UREA NITROGEN 12 mg/dL 10-26 (BEAKER) (test code = 354) CREATININE (BEAKER) 1.21 mg/dL 0.50-1.20 H (test code = 358) GLUCOSE RANDOM 112 mg/dL 70-110 H (BEAKER) (test code = 652) CALCIUM (BEAKER) 8.2 mg/dL 8.5-10.5 L (test code = 697) EGFR (BEAKER) (test INSUFFIC IENT CLINICAL code = 1092) DATA TO CALCULA TE ESTIMATED GFR. Drums Teacher ID - LITOOperator ID - LITOOperator ID - LITOOperator ID - LITOOperator ID - LITOOperator ID - LITOOperator ID - LITOOperator ID - LITOOperator ID - LITOOperator ID - [id number] 06:15:25 Test Item Value Reference Range Interpretation Comments MAGNESIUM (BEAKER) (test code = 1.6 mg/dL 1.5-3.0 627) Drums Teacher ID - LITOOperator ID - LITOOperator ID - LITOOperator ID - CHARLIE [id number] 06:12:31 Test Item Value Reference Range Interpretation Comments PHOSPHORUS (BEAKER) (test code = 3.1 mg/dL 2.5-4.5 604) Drums Teacher ID - LITOPOCT-GLUCOSE [id number] 20:59:47 Test Item Value Reference Range Interpretation Comments POC-GLUCOSE METER 144 mg/dL 70-110 H : TESTED A T [facility] [address] (BEAKER) (test code [address], = 1538) [facility] 77 [address]: Drums Teacher/Techni veda ID = [id number] for Faizan Nix POCT-GLUCOSE [id number] 18:09:15 Test Item Value Reference Range Interpretation Comments POC-GLUCOSE METER 133 mg/dL 70-110 H : TESTED A T [facility] [address] (BEAKER) (test code [address], = 1538) [facility] 77 478: Drums Teacher/Techni veda ID = [id number] for Kalin insKaren [id number] 15:15:12 Test Item Value Reference Range Interpretation Comments SODIUM (BEAKER) (test code = 381) 126 meq/L 135-148 L Drums Teacher ID - DSENSONPOCT-GLUCOSE [id number] 11:55:52 Test Item Value Reference Range Interpretation Comments POC-GLUCOSE METER 135 mg/dL 70-110 H : [facility] (BEAKER) (test code [address], = 1538) [place] [address]: Drums Teacher/Techni veda ID = [id number] for Sabrina Knight se POCT-GLUCOSE [id number] 07:41:46 Test Item Value Reference Range Interpretation Comments POC-GLUCOSE METER 116 mg/dL 70-110 H : Notified RN/MD: TESTED (BEAKER) (test code AT [facility] [address]) [address], [place] [address]: Drums Teacher/Techni veda ID = [id number] for TrentMusa cunningham BASIC METABOLIC [id number] 06:18:41 Test Item Value Reference Range Interpretation Comments SODIUM (BEAKER) (test 124 meq/L 135-148 L code = 381) POTASSIUM (BEAKER) 4.3 meq/L 3.6-5.5 (test code = 379) CHLORIDE (BEAKER) 99 meq/L 98-106 (test code = 382) CO2 (BEAKER) (test 21 meq/L 20-29 code = 355) BLOOD UREA NITROGEN 8 mg/dL 10-26 L (BEAKER) (test code = 354) CREATININE (BEAKER) 1.32 mg/dL 0.50-1.20 H (test code = 358) GLUCOSE RANDOM 120 mg/dL 70-110 H (BEAKER) (test code = 652) CALCIUM (BEAKER) 8.4 mg/dL 8.5-10.5 L (test code = 697) EGFR (BEAKER) (test INSUFFIC IENT CLINICAL code = 1092) DATA TO CALCULA TE ESTIMATED GFR. Drums Teacher ID - [id number] ID - [id number] ID - [id number] ID - HIEEZADDI010Uabublmq ID - EYZYYYMFK996Tlvgbtvr ID - TUPJFWBNX649Esjncjhb ID - SUWKJNKHG131Zonpvxhs ID - MIEZBFURC252Fuemywse ID - TKLEBQNEC666Ajvtcbfb ID - [id number] 06:12:49 Test Item Value Reference Range Interpretation Comments MAGNESIUM (BEAKER) (test code = 1.7 mg/dL 1.5-3.0 627) Drums Teacher ID - [id number] ID - [id number] ID - [id number] ID - [id number] 06:10:04 Test Item Value Reference Range Interpretation Comments PHOSPHORUS (BEAKER) (test code = 2.9 mg/dL 2.5-4.5 604) Drums Teacher ID - [id number] W/PLT COUNT & AUTO [id number] 06:08:30 Test Item Value Reference Range Interpretation Comments WHITE BLOOD CELL COUNT (BEAKER) 10.0 K/ L 4.0-10.0 (test code = 775) RED BLOOD CELL COUNT (BEAKER) 2.69 M/ L 4.20-5.80 L (test code = 761) HEMOGLOBIN (BEAKER) (test code = 7.3 GM/DL 13.0-16.8 L 410) HEMATOCRIT (BEAKER) (test code = 21.7 % 36.0-50.0 L 411) MEAN CORPUSCULAR VOLUME (BEAKER) 80.7 fL 82.0-99.0 L (test code = 753) MEAN CORPUSCULAR HEMOGLOBIN 27.1 pg 27.0-33.0 (BEAKER) (test code = 751) MEAN CORPUSCULAR HEMOGLOBIN CONC 33.6 GM/DL 32.0-36.0 (BEAKER) (test code = 752) RED CELL DISTRIBUTION WIDTH 15.1 % 12.0-15.0 H (BEAKER) (test code = 412) PLATELET COUNT (BEAKER) (test 279 K/CU MM 150-430 code = 756) MEAN PLATELET VOLUME (BEAKER) 9.3 fL 6.0-11.5 (test code = 754) NUCLEATED RED BLOOD CELLS 0 /100 WBC 0-0 (BEAKER) (test code = 413) NEUTROPHILS RELATIVE PERCENT 75 % (BEAKER) (test code = 429) LYMPHOCYTES RELATIVE PERCENT 13 % (BEAKER) (test code = 430) MONOCYTES RELATIVE PERCENT 7 % (BEAKER) (test code = 431) EOSINOPHILS RELATIVE PERCENT 3 % (BEAKER) (test code = 432) BASOPHILS RELATIVE PERCENT 1 % (BEAKER) (test code = 437) NEUTROPHILS ABSOLUTE COUNT 7.49 K/ L 1.80-8.00 (BEAKER) (test code = 670) LYMPHOCYTES ABSOLUTE COUNT 1.30 K/ L 1.48-4.50 L (BEAKER) (test code = 414) MONOCYTES ABSOLUTE COUNT (BEAKER) 0.73 K/ L 0.00-1.30 (test code = 415) EOSINOPHILS ABSOLUTE COUNT 0.34 K/ L 0.00-0.50 (BEAKER) (test code = 416) BASOPHILS ABSOLUTE COUNT (BEAKER) 0.07 K/ L 0.00-0.20 (test code = 417) IMMATURE GRANULOCYTES-RELATIVE 1 % 0-0 H PERCENT (BEAKER) (test code = 2801) BASIC METABOLIC [id number] 22:27:03 Test Item Value Reference Range Interpretation Comments SODIUM (BEAKER) (test 124 meq/L 135-148 L code = 381) POTASSIUM (BEAKER) 4.2 meq/L 3.6-5.5 (test code = 379) CHLORIDE (BEAKER) 97 meq/L 98-106 L (test code = 382) CO2 (BEAKER) (test 19 meq/L 20-29 L code = 355) BLOOD UREA NITROGEN 9 mg/dL 10-26 L (BEAKER) (test code = 354) CREATININE (BEAKER) 1.45 mg/dL 0.50-1.20 H (test code = 358) GLUCOSE RANDOM 142 mg/dL 70-110 H (BEAKER) (test code = 652) CALCIUM (BEAKER) 8.3 mg/dL 8.5-10.5 L (test code = 697) EGFR (BEAKER) (test INSUFFIC IENT CLINICAL code = 1092) DATA TO CALCULA TE ESTIMATED GFR. Drums Teacher ID - DSENSONOperator ID - DSENSONOperator ID - DSENSONOperator ID - DSENSONOperator ID - DSENSONOperator ID - DSENSONOperator ID - DSENSONOperator ID - DSENSONOperator ID - DSENSONOperator ID - DSENSONOperator ID - DSENSONOperator ID - DSENSONOperator ID - DSENSONPOCT-GLUCOSE [id number] 20:59:47 Test Item Value Reference Range Interpretation Comments POC-GLUCOSE METER 150 mg/dL 70-110 H : Notified RN/MD: TESTED (BEAKER) (test code AT [facility] [address] = 1538) [facility], [facility] [address]: Drums Teacher/Techni veda ID = [id number] for Xin Mooney POCT-GLUCOSE [id number] 17:26:30 Test Item Value Reference Range Interpretation Comments POC-GLUCOSE METER 158 mg/dL 70-110 H : TESTED A T [facility] 1317 (BEAKER) (test code [address] [facility], = 1538) [facility] 77 [address]: Drums Teacher/Techni veda ID = [id number] for Nena Sahu se [id number] 13:54:50 Test Item Value Reference Range Interpretation Comments SODIUM (BEAKER) (test code = 381) 123 meq/L 135-148 L Drums Teacher ID - DSENSONHEMOGLOBIN AND [id number] 13:41:05 Test Item Value Reference Range Interpretation Comments HEMOGLOBIN (BEAKER) (test code = 7.4 GM/DL 13.0-16.8 L 410) HEMATOCRIT (BEAKER) (test code = 21.6 % 36.0-50.0 L 411) [id number] 13:36:08 Test Item Value Reference Range Interpretation Comments CORTISOL, TOTAL (BEAKER) (test code 8.4 ug/dL 3.7-19.4 = 2755) Drums Teacher ID - DBVITAMIN D, [id number] 13:35:46 Test Item Value Reference Range Interpretation Comments VITAMIN D 25-OH (BEAKER) (test 46.4 ng/mL 6.6-49.9 code = 2764) Effective 08/05/2017: Reference Range ChangeNew: 6.6-49.9 ng/mL Previous: 13.0-47.8 ng/mLRecommended Vitamin D Target Range: 30.0-40.0 ng/mLOperator ID - DBPOCT-GLUCOSE [id number] 11:50:30 Test Item Value Reference Range Interpretation Comments POC-GLUCOSE METER 142 mg/dL 70-110 H : Notified RN/MD: TESTED ([facility]) (test code AT [facility] [address] = 15[address]) [place] [address]: Drums Teacher/Techni veda ID = [id number] for Trent h, Lorita [id number] 10:13:51 Test Item Value Reference Range Interpretation Comments SODIUM ([facility]) (test code = 381) 121 meq/L 135-148 L Drums Teacher ID - DSENSONPOCT-GLUCOSE [id number] 07:57:48 Test Item Value Reference Range Interpretation Comments POC-GLUCOSE METER 128 mg/dL 70-110 H : Notified RN/MD: TESTED ([facility]) (test code AT [facility] [address] = 1538) [place] [address]: Drums Teacher/Techni veda ID = [id number] for Trent h, Lorita POCT-GLUCOSE [id number] 06:10:53 Test Item Value Reference Range Interpretation Comments POC-GLUCOSE METER 126 mg/dL 70-110 H : [facility] T [facility] ([facility]) (test code [address] [facility], = 1538) [facility] 77 8: Drums Teacher/Techni veda ID = [id number] for Todd Arzate ra PTH, [id number] 05:37:51 Test Item Value Reference Range Interpretation Comments PARATHYROID HORMONE INTACT 43.8 pg/mL 15.0-90.0 ([facility]) (test code = 577) Drums Teacher ID - LITOIRON, TIBC, % SAT. (WITHOUT FERRITIN)2022-03-09 05:29:31 Test Item Value Reference Range Interpretation Comments IRON (BEAKER) (test code = 547) 36.0 ug/dL 45.0-170.0 L TOTAL IRON BINDING CAPACITY 275 ug/dL 250-550 (BEAKER) (test code = 769) IRON % SATURATION (2) (BEAKER) 13 % 20-55 L (test code = 2590) Drums Teacher ID - LITOOperator ID - LITOCOMPREHENSIVE METABOLIC [id number] 05:28:42 Test Item Value Reference Range Interpretation Comments TOTAL PROTEIN 6.2 gm/dL 6.0-8.5 Specimen moder ately (BEAKER) (test code = hemoly zed 770) ALBUMIN (BEAKER) 3.1 g/dL 3.5-5.0 L Specimen mo derately (test code = 1145) hemolyzed ALKALINE PHOSPHATASE 60 U/L 30-115 (BEAKER) (test code = 346) BILIRUBIN TOTAL 0.8 mg/dL 0.1-1.2 Specimen mod erately (BEAKER) (test code = hemoly zed 377) SODIUM (BEAKER) (test 118 meq/L 135-148 LL code = 381) POTASSIUM (BEAKER) 5.2 meq/L 3.6-5.5 Specimen moderately (test code = 379) hemolyzed CHLORIDE (BEAKER) 93 meq/L 98-106 L (test code = 382) CO2 (BEAKER) (test 18 meq/L 20-29 L code = 355) BLOOD UREA NITROGEN 11 mg/dL 10-26 (BEAKER) (test code = 354) CREATININE (BEAKER) 1.81 mg/dL 0.50-1.20 H Specimen moderately (test code = 358) hemolyzed GLUCOSE RANDOM 128 mg/dL 70-110 H (BEAKER) (test code = 652) CALCIUM (BEAKER) 8.0 mg/dL 8.5-10.5 L (test code = 697) AST (SGOT) (BEAKER) 20 U/L 5-40 Specimen moderately (test code = 353) hemolyzed ALT (SGPT) (BEAKER) 11 U/L 5-50 Specimen moderately (test code = 347) hemolyzed EGFR (BEAKER) (test INSUFFIC IENT CLINICAL code = 1092) DATA TO CALCULA TE ESTIMATED GFR. Drums Teacher ID - LITOOperator ID - LITOOperator ID - LITOOperator ID - LITOOperator ID - LITOOperator ID - LITOOperator ID - LITOOperator ID - LITOOperator ID - LITOOperator ID - LITOOperator ID - LITOOperator ID - LITOOperator ID - LITOOperator ID - LITOOperator ID - LITOOperator ID - [id number] 05:26:49 Test Item Value Reference Range Interpretation Comments FERRITIN (BEAKER) (test code = 52.70 ng/mL 22.00-322.00 361) Drums Teacher ID - [id number] 05:04:36 Test Item Value Reference Range Interpretation Comments MAGNESIUM (BEAKER) 2.0 mg/dL 1.5-3.0 Specimen moderately (test code = 627) hemolyzed Drums Teacher ID - LITOOperator ID - LITOOperator ID - LITOOperator ID - CHARLIE [id number] 05:00:56 Test Item Value Reference Range Interpretation Comments PHOSPHORUS (BEAKER) 3.0 mg/dL 2.5-4.5 Specimen moderately (test code = 604) hemolyzed Drums Teacher ID - LITOCBC W/PLT COUNT & AUTO [id number] 04:53:30 Test Item Value Reference Range Interpretation Comments WHITE BLOOD CELL COUNT (BEAKER) 10.3 K/ L 4.0-10.0 H (test code = 775) RED BLOOD CELL COUNT (BEAKER) 2.79 M/ L 4.20-5.80 L (test code = 761) HEMOGLOBIN (BEAKER) (test code = 7.6 GM/DL 13.0-16.8 L 410) HEMATOCRIT (BEAKER) (test code = 22.1 % 36.0-50.0 L 411) MEAN CORPUSCULAR VOLUME (BEAKER) 79.2 fL 82.0-99.0 L (test code = 753) MEAN CORPUSCULAR HEMOGLOBIN 27.2 pg 27.0-33.0 (BEAKER) (test code = 751) MEAN CORPUSCULAR HEMOGLOBIN CONC 34.4 GM/DL 32.0-36.0 (BEAKER) (test code = 752) RED CELL DISTRIBUTION WIDTH 14.5 % 12.0-15.0 (BEAKER) (test code = 412) PLATELET COUNT (BEAKER) (test 268 K/CU MM 150-430 code = 756) MEAN PLATELET VOLUME (BEAKER) 9.1 fL 6.0-11.5 (test code = 754) NUCLEATED RED BLOOD CELLS 0 /100 WBC 0-0 (BEAKER) (test code = 413) NEUTROPHILS RELATIVE PERCENT 79 % (BEAKER) (test code = 429) LYMPHOCYTES RELATIVE PERCENT 11 % (BEAKER) (test code = 430) MONOCYTES RELATIVE PERCENT 8 % (BEAKER) (test code = 431) EOSINOPHILS RELATIVE PERCENT 1 % (BEAKER) (test code = 432) BASOPHILS RELATIVE PERCENT 1 % (BEAKER) (test code = 437) NEUTROPHILS ABSOLUTE COUNT 8.16 K/ L 1.80-8.00 H (BEAKER) (test code = 670) LYMPHOCYTES ABSOLUTE COUNT 1.09 K/ L 1.48-4.50 L (BEAKER) (test code = 414) MONOCYTES ABSOLUTE COUNT (BEAKER) 0.78 K/ L 0.00-1.30 (test code = 415) EOSINOPHILS ABSOLUTE COUNT 0.13 K/ L 0.00-0.50 (BEAKER) (test code = 416) BASOPHILS ABSOLUTE COUNT (BEAKER) 0.06 K/ L 0.00-0.20 (test code = 417) IMMATURE GRANULOCYTES-RELATIVE 1 % 0-0 H PERCENT (BEAKER) (test code = 2801) [id number] 01:47:53 Test Item Value Reference Range Interpretation Comments PARTIAL THROMBOPLASTIN 42.2 seconds 23.0-35.0 H Final Information TIME (BEAKER) (test (Auto Ou tput) code = 760) PROTHROMBIN [id number] 01:47:52 Test Item Value Reference Range Interpretation Comments PROTIME (BEAKER) 12.6 seconds 9.3-12.0 H Final Infor mation (test code = 759) (Auto Outp ut) INR (BEAKER) (test 1.16 See_Comment Final Inf ormation code = 370) (Auto Output) [Automated mess age] The system [employer] generated this result transmitted ref erence range: <=5.90. The reference range was not used to int erpret this result as normal/abnormal . RECOMMENDED COUMADIN/WARFARIN INR THERAPY RANGESSTANDARD DOSE: 2.0 - 3.0 Includes: PROPHYLAXIS forvenous thrombosis, systemic embolization; TREATMENT for venous thrombosis and/or pulmonary embolus.HIGH RISK: Target INR is 2.5-3.5 for patients with mechanical heart valves.[id number] 22:53:32 Test Item Value Reference Range Interpretation Comments SODIUM (BEAKER) (test code = 381) 115 meq/L 135-148 LL Drums Teacher ID - VANANHPOCT-GLUCOSE [id number] 21:43:01 Test Item Value Reference Range Interpretation Comments POC-GLUCOSE METER 192 mg/dL 70-110 H : TESTED A T [facility] (BEAKER) (test code [address], = 1538) [place] [id number]: Drums Teacher/Techni veda ID = [id number] for Todd Arzate ra OSMOLALITY, [id number] 21:13:34 Test Item Value Reference Range Interpretation Comments OSMOLALITY, SERUM (BEAKER) (test 237 mOsm/kg 275-295 L code = 615) OSMOLALITY, [id number] 21:12:51 Test Item Value Reference Range Interpretation Comments OSMOLALITY URINE 282 mOsm/kg See_Comment [Automated message] (BEAKER) (test code = The sy stem which 614) generated this result transmitted ref erence range: 50-1,200 mOsm/kg. The reference range was not used to int erpret this result as normal/abnormal . POCT-GLUCOSE [id number] 18:30:15 Test Item Value Reference Range Interpretation Comments POC-GLUCOSE METER 133 mg/dL 70-110 H : TESTED A T [facility] (BEAKER) (test code [address], = 1538) [place] [id number]: Drums Teacher/Techni veda ID = [id number] for Tracy Nickerson BASIC METABOLIC [id number] 16:06:30 Test Item Value Reference Range Interpretation Comments SODIUM (BEAKER) (test 114 meq/L 135-148 LL code = 381) POTASSIUM (BEAKER) 4.6 meq/L 3.6-5.5 (test code = 379) CHLORIDE (BEAKER) 88 meq/L 98-106 L (test code = 382) CO2 (BEAKER) (test 16 meq/L 20-29 L code = 355) BLOOD UREA NITROGEN 12 mg/dL 10-26 (BEAKER) (test code = 354) CREATININE (BEAKER) 2.14 mg/dL 0.50-1.20 H (test code = 358) GLUCOSE RANDOM 122 mg/dL 70-110 H (BEAKER) (test code = 652) CALCIUM (BEAKER) 8.0 mg/dL 8.5-10.5 L (test code = 697) EGFR (BEAKER) (test INSUFFIC IENT CLINICAL code = 1092) DATA TO CALCULA TE ESTIMATED GFR. Drums Teacher ID - MERLINLYNNEOperator ID - JAQUELYNNEOperator ID - JAQUELYNNEOperator ID - JAQUELYNNEOperator ID - JAQUELYNNEOperator ID - JAQUELYNNEOperator ID - JAQUELYNNEOperator ID - JAQUELYNNEOperator ID - JAQUELYNNEOperator ID - JAQUELYNNEOperator ID - JAQUELYNNEOperator ID - JAQUELYNNEOperator ID - J AQUELYNNEHEMOGLOBIN AND [id number] 15:53:48 Test Item Value Reference Range Interpretation Comments HEMOGLOBIN (BEAKER) (test code = 8.0 GM/DL 13.0-16.8 L 410) HEMATOCRIT (BEAKER) (test code = 23.1 % 36.0-50.0 L 411) POCT-GLUCOSE [id number] 15:40:12 Test Item Value Reference Range Interpretation Comments POC-GLUCOSE METER 125 mg/dL 70-110 H : TESTED A T [facility] (BEAKER) (test code [facility] [address] [address], = 1538) [facility] [id number]: Drums Teacher/Techni veda ID = [id number] for Parish Velasco CREATININE, RANDOM [id number] 13:45:29 Test Item Value Reference Range Interpretation Comments CREATININE URINE (BEAKER) (test code < mg/dL = 375) Reference Range: No NormalsOperator ID - JAQUELYNNESODIUM, RANDOM URINE 2022-03-08 13:11:16 Test Item Value Reference Range Interpretation Comments SODIUM URINE (BEAKER) (test code = 150 meq/L 243) Reference Range: No NormalsOperator ID - JAQUELYNNEURINALYSIS W/ REFLEX URINE [id number] 13:09:05 Test Item Value Reference Range Interpretation Comments COLOR (BEAKER) (test code = Red 470) CLARITY (BEAKER) (test code = Cloudy 469) SPECIFIC GRAVITY UA (BEAKER) 1.010 1.001-1.035 (test code = 468) PH UA (BEAKER) (test code = 5.5 5.0-8.0 467) PROTEIN UA (BEAKER) (test code 100 mg/dL Negative A = 464) GLUCOSE UA (BEAKER) (test code Negative Negative = 365) KETONES UA (BEAKER) (test code Negative Negative = 371) BILIRUBIN UA (BEAKER) (test Negative Negative code = 462) BLOOD UA (BEAKER) (test code = Large Negative A 461) NITRITE UA (BEAKER) (test code Positive Negative A = 465) LEUKOCYTE ESTERASE UA (BEAKER) Trace Negative A (test code = 466) UROBILINOGEN UA (BEAKER) (test 0.2 mg/dL 0.2-1.0 code = 463) BACTERIA (BEAKER) (test code = None Seen 517) RBC UA-MANUAL (BEAKER) (test >100 /HPF code = 1659) WBC UA-MANUAL (BEAKER) (test 20-50 /HPF code = 1661) SQUAMOUS EPITHELIAL MANUAL None Seen /HPF (BEAKER) (test code = 1663) SOURCE(BEAKER) (test code = 2795) TSH/FREE T4 IF [id number] 13:03:41 Test Item Value Reference Range Interpretation Comments THYROID STIMULATING HORMONE 0.970 uIU/mL 0.350-5.500 (BEAKER) (test code = 772) Drums Teacher ID - JAQUELYNNEPOCT-GLUCOSE [id number] 12:30:08 Test Item Value Reference Range Interpretation Comments POC-GLUCOSE METER 126 mg/dL 70-110 H : TESTED A T [facility] 1317 (BEAKER) (test code [facility] [address], = 1538) [facility] 77 478: Drums Teacher/Techni veda ID = [id number] for Hal Balbuena COMPREHENSIVE METABOLIC [id number] 11:13:51 Test Item Value Reference Range Interpretation Comments TOTAL PROTEIN 6.5 gm/dL 6.0-8.5 (BEAKER) (test code = 770) ALBUMIN (BEAKER) 3.4 g/dL 3.5-5.0 L (test code = 1145) ALKALINE PHOSPHATASE 65 U/L 30-115 (BEAKER) (test code = 346) BILIRUBIN TOTAL 1.1 mg/dL 0.1-1.2 (BEAKER) (test code = 377) SODIUM (BEAKER) (test 111 meq/L 135-148 LL code = 381) POTASSIUM (BEAKER) 4.4 meq/L 3.6-5.5 (test code = 379) CHLORIDE (BEAKER) 86 meq/L 98-106 L (test code = 382) CO2 (BEAKER) (test 16 meq/L 20-29 L code = 355) BLOOD UREA NITROGEN 11 mg/dL 10-26 (BEAKER) (test code = 354) CREATININE (BEAKER) 2.15 mg/dL 0.50-1.20 H (test code = 358) GLUCOSE RANDOM 125 mg/dL 70-110 H (BEAKER) (test code = 652) CALCIUM (BEAKER) 7.9 mg/dL 8.5-10.5 L (test code = 697) AST (SGOT) (BEAKER) 17 U/L 5-40 (test code = 353) ALT (SGPT) (BEAKER) 11 U/L 5-50 (test code = 347) EGFR (BEAKER) (test INSUFFIC IENT CLINICAL code = 1092) DATA TO CALCULA TE ESTIMATED GFR. Drums Teacher ID - JAQUELYNNEOperator ID - JAQUELYNNEOperator ID - JAQUELYNNEOperator ID - JAQUELYNNEOperator ID - JAQUELYNNEOperator ID - JAQUELYNNEOperator ID - JAQUELYNNEOperator ID - JAQUELYNNEOperator ID - JAQUELYNNEOperator ID - JAQUELYNNEOperator ID - JAQUELYNNEOperator ID - JAQUELYNNEOperator ID - J AQUELYNNEOperator ID - JAQUELYNNEOperator ID - JAQUELYNNEOperator ID - JAQUELYNNEOperator ID - JAQUELYNNEOperator ID - JAQUELYNNEOperator ID - JAQUELYNNEPOCT-GLUCOSE [id number] 10:49:58 Test Item Value Reference Range Interpretation Comments POC-GLUCOSE METER 114 mg/dL 70-110 H : TESTED A T [facility] 1317 ([facility]) (test code [address], = 1538) [facility] 77 478: Drums Teacher/Techni veda ID = [id number] for Parish Velasco [id number] 10:19:32 Test Item Value Reference Range Interpretation Comments FIBRINOGEN LEVEL 499 mg/dl 200-400 H Final Infor mation (AKER) (test code = (Auto Output) 658) URIC [id number] 10:09:26 Test Item Value Reference Range Interpretation Comments URIC ACID (BEAKER) (test code = 5.4 mg/dL 2.5-8.0 773) Drums Teacher ID - [id number] 10:09:05 Test Item Value Reference Range Interpretation Comments MAGNESIUM (BEAKER) (test code = 1.3 mg/dL 1.5-3.0 L 627) Drums Teacher ID - JAQUELYNNEOperator ID - JAQUELYNNEOperator ID - JAQUELYNNEOperator ID - JAQUELYNNEPROTHROMBIN [id number] 10:07:06 Test Item Value Reference Range Interpretation Comments PROTIME (BEAKER) 15.9 seconds 9.3-12.0 H Final Infor mation (test code = 759) (Auto Outp ut) INR (BEAKER) (test 1.49 See_Comment Final Inf ormation code = 370) (Auto Output) [Automated mess age] The system [employer] generated this result transmitted ref erence range: <=5.90. The reference range was not used to int erpret this result as normal/abnormal . RECOMMENDED COUMADIN/WARFARIN INR THERAPY RANGESSTANDARD DOSE: 2.0 - 3.0 Includes: PROPHYLAXIS forvenous thrombosis, systemic embolization; TREATMENT for venous thrombosis and/or pulmonary embolus.HIGH RISK: Target INR is 2.5-3.5 for patients with mechanical heart valves.[id number] 10:05:42 Test Item Value Reference Range Interpretation Comments PHOSPHORUS (BEAKER) (test code = 2.5 mg/dL 2.5-4.5 604) Drums Teacher ID - MERLINLYNNEPROTHROMBIN [id number] 10:03:44 Test Item Value Reference Range Interpretation Comments PROTIME (BEAKER) 15.8 seconds 9.3-12.0 H Final Infor mation (test code = 759) (Auto Outp ut) INR (BEAKER) (test 1.48 See_Comment Final Inf ormation code = 370) (Auto Output) [Automated mess age] The system [employer] generated this result transmitted ref erence range: <=5.90. The reference range was not used to int erpret this result as normal/abnormal . RECOMMENDED COUMADIN/WARFARIN INR THERAPY RANGESSTANDARD DOSE: 2.0 - 3.0 Includes: PROPHYLAXIS forvenous thrombosis, systemic embolization; TREATMENT for venous thrombosis and/or pulmonary embolus.HIGH RISK: Target INR is 2.5-3.5 for patients with mechanical heart valves.CBC W/PLT COUNT & AUTO DIFFERENTIAL 2022-03-08 09:52:08 Test Item Value Reference Range Interpretation Comments WHITE BLOOD CELL COUNT (BEAKER) 13.4 K/ L 4.0-10.0 H (test code = 775) RED BLOOD CELL COUNT (BEAKER) 3.10 M/ L 4.20-5.80 L (test code = 761) HEMOGLOBIN (BEAKER) (test code = 8.5 GM/DL 13.0-16.8 L 410) HEMATOCRIT (BEAKER) (test code = 24.3 % 36.0-50.0 L 411) MEAN CORPUSCULAR VOLUME (BEAKER) 78.4 fL 82.0-99.0 L (test code = 753) MEAN CORPUSCULAR HEMOGLOBIN 27.4 pg 27.0-33.0 (BEAKER) (test code = 751) MEAN CORPUSCULAR HEMOGLOBIN CONC 35.0 GM/DL 32.0-36.0 (BEAKER) (test code = 752) RED CELL DISTRIBUTION WIDTH 14.4 % 12.0-15.0 (BEAKER) (test code = 412) PLATELET COUNT (BEAKER) (test 282 K/CU MM 150-430 code = 756) MEAN PLATELET VOLUME (BEAKER) 8.8 fL 6.0-11.5 (test code = 754) NUCLEATED RED BLOOD CELLS 0 /100 WBC 0-0 (BEAKER) (test code = 413) NEUTROPHILS RELATIVE PERCENT 83 % (BEAKER) (test code = 429) LYMPHOCYTES RELATIVE PERCENT 8 % (BEAKER) (test code = 430) MONOCYTES RELATIVE PERCENT 7 % (BEAKER) (test code = 431) EOSINOPHILS RELATIVE PERCENT 0 % (BEAKER) (test code = 432) BASOPHILS RELATIVE PERCENT 0 % (BEAKER) (test code = 437) NEUTROPHILS ABSOLUTE COUNT 11.11 K/ L 1.80-8.00 H (BEAKER) (test code = 670) LYMPHOCYTES ABSOLUTE COUNT 1.10 K/ L 1.48-4.50 L (BEAKER) (test code = 414) MONOCYTES ABSOLUTE COUNT (BEAKER) 0.99 K/ L 0.00-1.30 (test code = 415) EOSINOPHILS ABSOLUTE COUNT 0.02 K/ L 0.00-0.50 (BEAKER) (test code = 416) BASOPHILS ABSOLUTE COUNT (BEAKER) 0.06 K/ L 0.00-0.20 (test code = 417) IMMATURE GRANULOCYTES-RELATIVE 1 % 0-0 H PERCENT (BEAKER) (test code = 2800)
[2022-03-21] MEDS ORDERED: NACL 0.9% IRR SOLN 2,000 ML IRR ONE ×3 (08:02→11:43)
[2022-03-21] MEDS ORDERED: LIDOCAINE VISCOUS 2% SOLN 15 ML UDC ONE (08:10)
[2022-03-21 09:27] LABS: Urine Blood 3+ (Negative); Urine Glucose Negative (Negative); Urine Protein 3+ (Negative); Urine pH 8.5 (5.0-7.0)
[2022-03-21 09:58] LABS: Urine Bacteria <20 /HPF (NONE SEEN); Urine RBC LOADED /HPF (NONE SEEN)
[2022-03-21] MEDS ORDERED: LIDOCAINE 1% MPF 2 ML AMPULE ONE (10:25)
[2022-03-21] MEDS ORDERED: CEFTRIAXONE 1000 MG/VIAL ONE (10:25)
--- NOTE | 2022-03-21 12:51 | ER ---
Nurse's Notes [facility] Name: Marshal Gallego Age: 76 yrs Sex: Male : 1945 Arrival Date: 03/21/2022 Time: 07:44 Bed 15 Private MD: Diagnosis: Retention of urine, unspecified;Hematuria, unspecified Presentation: 03/21 07:47 Chief complaint: EMS states: pt has had blood in urine after prostate surgery with Dr. vivek Diaz February 25, was transferred to [place] 2 weeks ago and had CBI done, today he has had diff urinating with blood in urine. Coronavirus screen: At this time, the client does not indicate any symptoms associated with coronavirus-19. Ebola Screen: Patient negative for fever greater than or equal to 101.5 degrees Fahrenheit, and additional compatible Ebola Virus Disease symptoms Patient denies exposure to infectious person. Patient denies travel to an Ebola-affected area in the 21 days before illness onset. No symptoms or risks identified at this time. Initial Sepsis Screen: Does the patient meet any 2 criteria? No. Patient's initial sepsis screen is negative. Does the patient have a suspected source of infection? No. Patient's initial sepsis screen is negative. Risk Assessment: Do you want to hurt yourself or someone else? Patient reports no desire to harm self or others. Onset of symptoms was March 21, 2022. 07:47 Method Of Arrival: EMS: [facility] 07:47 Acuity: LUCILA 3 iw Historical: - Allergies: 07:49 No Known Allergies; iw - PMHx: 07:49 diabetes mellitus; Hypertensive disorder; iw - PSHx: 07:49 TURP; iw - Family history:: not pertinent. - Social history:: Smoking status: Patient denies any tobacco usage or history of. - Hospitalizations: : Patient was recently seen at. Screenin:00 Abuse screen: Denies threats or abuse. Nutritional screening: No deficits noted. 6 Tuberculosis screening: No symptoms or risk factors identified. Fall Risk IV access (20 points). Assessment: 08:00 General: Appears in no apparent distress. Behavior is calm, cooperative, appropriate jh6 for age. 08:00 Pain: Complains of pain in suprapubic area Pain currently is 3 out of 10 on a pain jh6 scale. Quality of pain is described as sharp, Pain began 1 day ago. Is intermittent, Aggravated by needing to void. 09:00 Reassessment: No changes from previously documented assessment. Patient and/or family jh6 updated on plan of care and expected duration. Pain level reassessed. 11:09 Reassessment: Patient and/or family updated on plan of care and expected duration. Pain jh6 level reassessed. second back of ns 2 liter started. urine returned is more clear with slight pink tinge. 12:00 Reassessment: Patient and/or family updated on plan of care and expected duration. Pain jh6 level reassessed. irrigation fluids running and out put has cleared more. small micro clots noted with output. Patient states symptoms have improved. 14:26 Reassessment: Patient and/or family updated on plan of care and expected duration. Pain jh6 level reassessed. Dr Schuler Urology at bedside irrigating cath at this time. pt tolerating well and is at bedside. 20:48 Reassessment: 2 l irrigation bag x 2 administered, urine pink at his time, hanged 2 ke1 others bags of 2 l. Vital Signs: 07:45 BP 140 / 72; Pulse 84; Resp 18; Temp 98.5(O); Pulse Ox 100% on R/A; Weight 127.01 kg 7 (R); Height 5 ft. 11 in. (180.34 cm) (R); 09:00 BP 148 / 86; Pulse 96; Resp 17; Pulse Ox 99% ; Pain 2/10; jh6 10:15 BP 125 / 81; Pulse 90; Resp 17; Temp 100; Pain 2/10; jh6 11:00 BP 110 / 71; Pulse 84; Resp 17; Pulse Ox 100% ; Pain 3/10; jh6 12:00 BP 129 / 77; Pulse 71; Resp 17; Pulse Ox 100% ; Pain 2/10; jh6 13:00 BP 129 / 61; Pulse 77; Resp 17; Pulse Ox 100% ; Pain 0/10; jh6 21:54 BP 120 / 72; Pulse 64; Resp 18; Pulse Ox 100% ; ke1 07:45 Body Mass Index 39.05 (127.01 kg, 180.34 cm) [facility] ED Course: 07:44 Patient arrived in ED. [facility] 07:45 Ronn Schultz MD is Attending Physician. rn 07:46 Patient has correct armband on for positive identification. Bed in low position. Call mb7 light in reach. Side rails up X 1. Door closed. Noise minimized. Warm blanket given. 07:49 Triage completed. iw 08:35 Bladder irrigated via Raman with 2 liters. jh6 08:35 No provider procedures requiring assistance completed. jh6 08:35 Raman cath inserted, using sterile technique, [address], balloon inflated, urine 6 specimen collected. returned bloody urine. Patient tolerated well. 3-way catheter inserted, using sterile technique, 20 Fr. Returned bloody urine. 09:41 Radha Ivy, RN is Primary Nurse. 6 12:50 Sulema Flores MD is Hospitalizing Provider. rn 13:34 Awaiting: pt resting irrigation completed, waiting for urology eval. 6 21:54 Patient admitted, IV remains in place. ke1 Administered Medications: 10:36 Drug: Rocephin (cefTRIAXone) 1 grams Route: IV; Rate: calculated rate; Site: Other; [facility] Outcome: 12:50 Decision to Hospitalize by Provider. rn 21:53 Admitted to Med/surg accompanied by tech. ke1 21:53 Condition: stable 21:53 Instructed on the need for admit. 21:55 Patient left the ED. ke1 Signatures: Court Pat, ZAID MAR Ronn Schultz MD MD rn Hastedt, Jennifer, ZAID MAR [facility] Sofi Llamas mb7 Edgar Hayden RN RN ke1
--- NOTE | 2022-03-21 12:51 | EDPHYS ---
Physician Documentation [facility] Name: Marshal Gallego Age: 76 yrs Sex: Male : 1945 Arrival Date: 03/21/2022 Time: 07:44 Bed 15 Private MD: ED Physician Ronn Schultz HPI: 03/21 09:47 This 76 yrs old Male presents to ER via EMS with complaints of Urinary rn Retention. 09:47 The patient presents with urinary symptoms, retention, unable to void, Last void was rn yesterday. Onset: The symptoms/episode began/occurred 2 day(s) ago. Modifying factors: The symptoms are alleviated by nothing, the symptoms are aggravated by urinating. Associated signs and symptoms: Pertinent positives: dysuria, hematuria, Pertinent negatives: fever, nausea, vomiting. Severity of symptoms: At their worst the symptoms were moderate, in the emergency department the symptoms are unchanged. The patient has experienced similar episodes in the past. The patient has been recently seen by a physician:. Pt reports recent admission to hospital for inability to urinate, had currie catheter placed at that time, currie catheter removed by Dr. Diaz this week, was able to urinate, noticed blood in urine for the last 2 days and now unable to urinate. Last urinated last night. NO fever/chills. Reports currently taking bactrim for 2 days for possible UTI. Also, held xarelto and aspirin when bleeding started, last dose 2 nights ago.. Historical: - Allergies: 07:49 No Known Allergies; iw - PMHx: 07:49 diabetes mellitus; Hypertensive disorder; iw - PSHx: 07:49 TURP; iw - Family history:: not pertinent. - Social history:: Smoking status: Patient denies any tobacco usage or history of. - Hospitalizations: : Patient was recently seen at. ROS: 09:47 Constitutional: Negative for fever, chills, and weight loss, Eyes: Negative for injury, rn pain, redness, and discharge, Neck: Negative for injury, pain, and swelling, Cardiovascular: Negative for chest pain, palpitations, and edema, Respiratory: Negative for shortness of breath, cough, wheezing, and pleuritic chest pain, Abdomen/GI: Negative for abdominal pain, nausea, vomiting, diarrhea, and constipation, Back: Negative for injury and pain, : + hematuria and dysuria MS/Extremity: Negative for injury and deformity, Skin: Negative for injury, rash, and discoloration, Neuro: Negative for headache, weakness, numbness, tingling, and seizure. Exam: 09:47 Constitutional: This is a well developed, well nourished patient who is awake, alert, rn and in no acute distress. Head/Face: Normocephalic, atraumatic. Cardiovascular: Regular rate and rhythm. No pulse deficits. Respiratory: No increased work of breathing, no retractions or nasal flaring. Abdomen/GI: soft, non-tender, non-distended Skin: Warm, dry MS/ Extremity: Pulses equal, no cyanosis. Neurovascular intact. Full, normal range of motion. Equal circumference. 1+ pitting edema bilateral lower ext Neuro: Awake and alert, GCS 15 Vital Signs: 07:45 BP 140 / 72; Pulse 84; Resp 18; Temp 98.5(O); Pulse Ox 100% on R/A; Weight 127.01 kg mb7 (R); Height 5 ft. 11 in. (180.34 cm) (R); 09:00 BP 148 / 86; Pulse 96; Resp 17; Pulse Ox 99% ; Pain 2/10; jh6 10:15 BP 125 / 81; Pulse 90; Resp 17; Temp 100; Pain 2/10; jh6 11:00 BP 110 / 71; Pulse 84; Resp 17; Pulse Ox 100% ; Pain 3/10; jh6 12:00 BP 129 / 77; Pulse 71; Resp 17; Pulse Ox 100% ; Pain 2/10; jh6 13:00 BP 129 / 61; Pulse 77; Resp 17; Pulse Ox 100% ; Pain 0/10; jh6 21:54 BP 120 / 72; Pulse 64; Resp 18; Pulse Ox 100% ; ke1 07:45 Body Mass Index 39.05 (127.01 kg, 180.34 cm) mb7 MDM: 07:45 Patient medically screened. rn 12:43 ED course: Consulted with Dr. Diaz, requests to hold in ER and will come and rn evaluate patient. . 12:50 Differential diagnosis: UTI, urinary retention. Data reviewed: vital signs, nurses rn notes, lab test result(s), and as a result, I will admit patient. Counseling: I had a detailed discussion with the patient and/or guardian regarding: the historical points, exam findings, and any diagnostic results supporting the discharge/admit diagnosis, lab results, the need for further work-up and treatment in the hospital. Response to treatment: There is no appreciated change of the patient's symptoms at this time, and as a result, I will admit patient. Admission orders: after a detailed discussion of the patient's condition and case, the admit orders are written by me. 03/21 07:57 Order name: Urine Microscopic Only; Complete Time: 10:02 03/21 07:57 Order name: Urine Culture 03/21 09:27 Order name: Urine Dipstick-Ancillary; Complete Time: 10:02 EDID 03/21 12:37 Order name: CBC with Diff 03/21 12:37 Order name: Basic Metabolic Panel 03/21 12:37 Order name: PT-INR 03/21 07:57 Order name: Urine Dipstick-Ancillary (obtain specimen); Complete Time: 09:40 03/21 07:57 Order name: Currie-Hematuria; Complete Time: 09:40 03/21 12:37 Order name: Ptt, Activated 03/21 12:51 Order name: SARS-COV-2 RT PCR (Document "Date of Onset" if Symptomatic) 03/21 15:45 Order name: CONS Physician Consult EDID 03/21 20:40 Order name: ABO/RH no charge EDID 03/21 21:03 Order name: Type and Screen EDID 03/21 07:57 Order name: Bladder Irrigation; Complete Time: 09:40 03/21 07:57 Order name: Bladder Scanner; Complete Time: 09:40 03/21 12:37 Order name: IV Start rn Administered Medications: 10:36 Drug: Rocephin (cefTRIAXone) 1 grams Route: IV; Rate: calculated rate; Site: Other; [facility] Disposition Summary: 03/21/22 12:50 Hospitalization Ordered Hospitalization Status: Observation rn Provider: Sulema Flores rn Location: Telemetry/[facility] (observation) rn Condition: Stable rn Problem: new rn Symptoms: are unchanged rn Bed/Room Type: Standard rn Room Assignment: 230(03/21/22 20:06) cg Diagnosis - Retention of urine, unspecified rn - Hematuria, unspecified rn Forms: - Medication Reconciliation Form rn - SBAR form rn Signatures: Dispatcher [employer] Court Dan RN RN iw Nieto, Roman, MD MD rn Garcia, Cindy, RN RN cg Hastedt, Jennifer, RN RN jh6 Corrections: (The following items were deleted from the chart) 20:06 12:50 louie naik
[2022-03-21] MEDS ORDERED: NA CHLORIDE 0.9% 2,000 ML ONE (14:24)
[2022-03-21] MEDS ORDERED: WATER FOR INJ,STERILE 10 ML ONE (14:27)
[2022-03-21] MEDS ORDERED: NACL 0.9% IRR SOLN 4,000 ML IRR ONE ×4 (15:13→20:32)
--- NOTE | 2022-03-21 16:01 | P.HP ---
Certification for Inpatient Patient admitted to: Inpatient With expected LOS: >2 Midnights Patient will require the following post-hospital care: None Practitioner: I am a practitioner with admitting privileges, knowledge of patient current condition, hospital course, and medical plan of care. Services: Services provided to patient in accordance with Admission requirements found in Title 42 Section 412.3 of the Code of Federal Regulations Patient History Date of Service: 03/21/22 Reason for admission: hematuria History of Present Illness: Mr. Gallego is a 76 yo M with T2DM, Hypertension, CAD s/p cardiac stent, Atrial fibrillation on Xarelto, CKD, HLD, s/p recent TURP procedure who presents with hematuria and inability to urinate. Patient restarted Xarelto on Thursday, and began to have hematuria and dysuria. Then last night, he was unable to urinate. Last dose of Xarelto was Thursday, but hematuria has continued. Urology at bedside and started continuous bladder irrigation. This is the second time patient has had this complication since surgery. Previously, patient was transferred to [place] for urology, and required blood transfusion due to blood loss from hematuria. Patient went home with currie, which was removed and patient was able to urinate at that time with no complication until restarting Xarelto again. Patient's call person will be contacted to determine plan for Xarelto. Allergies No Known Allergies Allergy (Verified 02/25/22 09:54) Home Medications: Atorvastatin Calcium [Lipitor] 40 mg PO BEDTIME 08/24/17 Glimepiride 2 mg PO DAILY 08/24/17 Irbesartan [Avapro] 300 mg PO DAILY 08/24/17 Metoprolol Succinate [Toprol Xl] 25 mg PO [id number] 08/24/17 Rivaroxaban [Xarelto] 20 mg PO DAILY 08/24/17 Tamsulosin [Flomax*] 0.4 mg PO BEDTIME 08/24/17 Aspirin [Aspirin EC 81 MG] 1 tab PO DAILY 02/20/22 Codeine/APAP [Tylenol W/Codeine #3 tab] 1 tab PO Q6HP PRN #12 tab 02/25/22 Oxybutynin Chloride [Ditropan Xl] 5 mg PO DAILY PRN #30 tab.er.24 02/25/22 Sodium Chloride Tab [Sodium Chloride*] 1 gm PO BID #60 tab 02/26/22 - Past Medical/Surgical History Diabetic: Yes -: Diabetes -: HTN -: HLD -: BPH -: CAD -: CKD -: atrial fibrillation on xarelto -: Stent placement 10 yrs ago -: TURP - Family History Family History: Reviewed- Non-Contributory - Social History Smoking Status: Unknown if ever smoked Alcohol use: No CD- Drugs: No Caffeine use: Yes Place of Residence: Home Review of Systems General: Unremarkable Eyes: Unremarkable ENT: Unremarkable Respiratory: Unremarkable Cardiovascular: Unremarkable Gastrointestinal: Unremarkable Genitourinary: Dysuria, Hematuria Musculoskeletal: Unremarkable Integumentary: Unremarkable Neurological: Unremarkable Lymphatics: Unremarkable Physical Examination - Physical Exam General: Alert, In no apparent distress HEENT: Atraumatic, Normocephalic Respiratory: Clear to auscultation bilaterally, Normal air movement Cardiovascular: No edema, Regular rate/rhythm Capillary refill: <2 Seconds Gastrointestinal: Normal bowel sounds, Soft and benign Musculoskeletal: No clubbing, No swelling Integumentary: No rashes, No breakdown Neurological: Normal speech, Normal affect Lymphatics: No axilla or inguinal lymphadenopathy Urinary: Currie catheter Assessment and Plan - Plan Assessment Hematuria s/p reinitiation of anticoagulation after TURP Atrial fibrillation on xarelto CAD with stent UTI History of hyponatremia Type 2 diabetes mellitus Hypertension Hyperlipidemia Plan Hematuria s/p reinitiation of anticoagulation after TURP - urology consulted - NPO after midnight - continue CBI until urine is light pink to clear, plan to wean CBI tomorrow - continue oxybutinin - monitor H/H - Dr. Mullins (cardiology) contacted - feels patient's CVA risk is too high to discontinue xarelto. Hold lovenox until urine is clear. Plan for Lovenox 50-60 mg q12 hours while inpatient and for 2-3 weeks thereafter if patient does not bleed while on lovenox Atrial fibrillation on xarelto - hold xarelto - continue rate control medications CAD with stent - hold aspirin - continue home medications UTI - continue rocephin History of hyponatremia - continue with sodium tablets - cloth colorer is Dr. Lowry Type 2 diabetes mellitus - sliding scale insulin and accuchecks - A1c pending Hypertension - reconcile home medications - hydralazine as needed Hyperlipidemia - reconcile home medications DVT ppx: SCDs Code status: full Discharge Plan: Home Plan to discharge in: 48 Hours - Advance Directives Does patient have a Living Will: No Does patient have a Durable POA for Healthcare: No - Code Status/Comfort Care Code Status Assessed: Yes (full code ) Critical Care: No Time Spent Managing Pts Care (In Minutes): 70
[2022-03-21 16:10] LABS: Absolute Lymphocytes (CBC) 1.2 K/uL (0.7-4.9); Hematocrit 25.9 % (39.6-49.0); Lymphocytes % 13.5 % (15.3-44.8); MPV 6.7 fL (7.6-11.3); RBC Red Blood Cell Count 3.16 M/uL (4.33-5.43)
[2022-03-21 16:14] LABS: Protime INR 1.44
[2022-03-21 16:23] LABS: Potassium 4.5 mmol/L (3.5-5.1)
[2022-03-21] MEDS ORDERED: NACL 0.9% IRR SOLN 2,000 ML IRR SCH (18:41)
[2022-03-21] MEDS: INSULIN -REGULAR HUMAN 50 UNIT/0.5 ML ML SQ SCH ×2 (18:41→21:00)
[2022-03-21] MEDS ORDERED: ACETAMINOPHEN 500 MG TAB PO PRN (18:41)
[2022-03-21] MEDS ORDERED: ONDANSETRON 4 MG/2 ML VIAL IV PRN (18:41)
[2022-03-21] MEDS: OXYBUTYNIN CHLORIDE 5 MG TAB PO SCH (22:30)
[2022-03-21] MEDS: NA CHLORIDE 0.9% 1,000 ML IV SCH (22:30)
[2022-03-21 23:22] VITALS: BMI 37.8
[2022-03-22 01:20] LABS: Hematocrit 25.6 % (39.6-49.0)
[2022-03-22] MEDS ORDERED: NA CHLORIDE 0.9% 500 ML IV ONE (04:00)
[2022-03-22 06:30] LABS: Absolute Lymphocytes (CBC) 1.1 K/uL (0.7-4.9); Hematocrit 24.3 % (39.6-49.0); Lymphocytes % 12.8 % (15.3-44.8); MPV 6.9 fL (7.6-11.3); RBC Red Blood Cell Count 2.94 M/uL (4.33-5.43)
[2022-03-22 06:43] LABS: Magnesium 1.7 mg/dL (1.8-2.4); Phosphorus 3.4 mg/dL (2.5-4.9); Potassium 4.7 mmol/L (3.5-5.1)
[2022-03-22] MEDS: INSULIN -REGULAR HUMAN 50 UNIT/0.5 ML ML SQ SCH ×4 (07:30→20:44)
[2022-03-22] MEDS ORDERED: PNEUMOCOCCAL VACCINE 0.5 ML IMVAC ONE (08:00)
[2022-03-22] MEDS: NA CHLORIDE 0.9% 1,000 ML IV SCH ×2 (08:01→21:25)
[2022-03-22] MEDS ORDERED: CEFTRIAXONE 1000 MG/VIAL ONE ×2 (08:16→08:17)
[2022-03-22] MEDS ORDERED: FERROUS SULFATE 325 MG TAB PO SCH (09:00)
[2022-03-22] MEDS: CEFTRIAXONE 1,000 MG in NA CHLORIDE 0.9% 50 ML IVPB SCH (09:38)
[2022-03-22] MEDS: SODIUM CHLORIDE 1 GM TAB PO SCH ×2 (09:39→21:24)
[2022-03-22] MEDS: OXYBUTYNIN CHLORIDE 5 MG TAB PO SCH ×2 (09:39→21:24)
[2022-03-22] MEDS: VALSARTAN 160 MG TAB PO SCH (09:40)
[2022-03-22] MEDS: METOPROLOL XL 25 MG TAB PO SCH (09:40)
[2022-03-22] MEDS ORDERED: LIDOCAINE JELLY 2% 5 ML SYRINGE TOP ONE (10:35)
--- NOTE | 2022-03-22 11:18 | P.PN ---
Subjective Date of Service: 03/22/22 Chief Complaint: hematuria Subjective: No new changes (Still draining hematuria on CBI Still n.p.o., anxious to eat) Physical Examination - Vital Signs Temperature: 98.4 F Blood Pressure: 119/62 Pulse: 85 Respirations: 16 Pulse Ox (%): 97 - Studies Laboratory Data (last 24 hrs) 03/21/22 16:00: PT 16.0 H, INR 1.44, APTT 42.5 H 03/21/22 16:00: Sodium 130 L, Potassium 4.5, BUN 12, Creatinine 1.85 H, Glucose 192 H 03/21/22 16:00: WBC 8.5 D, Hgb 8.6 L, Hct 25.9 L, Plt Count 358 Assessment And Plan Physician Review: Patient Assessed, Agree with Above Assessment and Plan Physician Review Additional Text: - Physical Exam General: Alert, In no apparent distress HEENT: Atraumatic, Normocephalic Respiratory: Clear to auscultation bilaterally, Normal air movement Cardiovascular: No edema, Regular rate/rhythm Capillary refill: <2 Seconds Gastrointestinal: Normal bowel sounds, Soft and benign Musculoskeletal: No clubbing, No swelling Integumentary: No rashes, No breakdown Neurological: Normal speech, Normal affect Lymphatics: No axilla or inguinal lymphadenopathy Urinary: Raman catheter, on CBI, bloodstained urine Assessment Hematuriarecurrent with reinitiation of anticoagulation after post TURP 6 weeks ago Atrial fibrillation on xarelto CAD with stent UTI History of hyponatremia Type 2 diabetes mellitus Hypertension Hyperlipidemia Plan Persistent hematuriaslowly clearing with CBI Continue gentle IV fluid Follow urology for possible intervention although patient reports negative cystoscopy [address] Diaz Continue to hold anticoagulation for now H&H trending down but continue every 12, if less than 7 with dose PRBC Follow iron level - Dr. Mullins (cardiology) contacted - feels patient's CVA risk is too high to discontinue xarelto. Hold lovenox until urine is clear. Plan for Lovenox 50-60 mg q12 hours while inpatient and for 2-3 weeks thereafter if patient does not bleed while on lovenox -Hold aspirin for now until hematuria clears -Presumed UTI, follow culture, continue empirical Rocephin for nowBP due to hematuria rather than actual UTI Serum sodium controlled, continue salt tabs, follow with Dr. Lowry - sliding scale insulin and accuchecks DVT ppx: SCDs Code status: full Discharge Plan: Home Plan to discharge in: 48 Hours
[2022-03-22] MEDS ORDERED: NA CHLORIDE 0.9% 1,000 ML ONE ×2 (11:33→13:53)
[2022-03-22 11:52] LABS: Hematocrit 25.1 % (39.6-49.0)
[2022-03-22] MEDS ORDERED: SUCCINYLCHOLINE 20 MG/ML (10 ML) IV ONE (11:59)
--- NOTE | 2022-03-22 12:00 | P.PN ---
Subjective Date of Service: 03/22/22 Chief Complaint: hematuria Subjective: No new changes, NPO See complete consultation note dictated 03/21/2022 #[id number]. Follow-up: 76yo gentleman with multiple medical comorbidities including hyponatremia, CAD with stent and Afib on Xarelto, who underwent TURP 02/25/22 complicated by delayed post-op clot retention around 03/08/22, after he resumed his Xarelto on 03/03/22 as instructed. Even this was delayed 2 days beyond that recommended by his primary health organisation manager. The clot retention was managed at [facility] [place], [place], and he was discharged with a catheter. A voiding trial was completed in my office around 03/12/22 at which time his urine was completely clear. We delayed resuming the Xarelto again till 03/17/22 to allow more time for stabilization of any potential bleeding source. Despite this, after resuming the Xarelto on Thursday, by Thursday, he contacted the office with recurrent light pink gross hematuria. We instructed him to avoid any further Xarelto at that time, but despite this, on Thursday, he went to the ER with concern for difficulty voiding suspecting clots. While no significant clot burden was encountered, he did have persistent pink urine; so CBI with NS was initiated. Despite continuing it overnight, he continued with light pink urine on slow-moderate drip CBI. Serial hemoglobin assessments were made since yesterday afternoon in the emergency department. 8.6 at 4 PM down to 8.5 at 12:48 AM down to 8.2 at 6:05 AM. Raman catheter exchange and Bladder irrigation procedure note: I thus remove the indwelling hematuria catheter placed by the emergency department, and I cleansed his genitalia before prepping the area with Betadine and draping him in standard fashion. A lidocaine Urojet was applied intraurethrally for local anesthesia. I then easily passed a 24 Japanese three- way Raman catheter into his bladder, and I irrigated the catheter with 60 cc normal saline to confirm appropriate intravesical location. I then filled the balloon with 30 cc of sterile water, and I continue to irrigate his bladder with 500 cc of fluid. No significant clots were encountered; so I again initiated continuous bladder irrigation using normal saline. At slow to moderate drip, the urine remained light pink. Exam: AAOx3 in NAD No dyspnea/sign of respiratory distress Abdomen soft, nontender, nondistended Pulse irregular but vital signs stable Comfortable and well-appearing Physical Examination - Vital Signs Temperature: 98.4 F Blood Pressure: 119/62 Pulse: 85 Respirations: 16 Pulse Ox (%): 97 - Studies Laboratory Data (last 24 hrs) 03/21/22 16:00: PT 16.0 H, INR 1.44, APTT 42.5 H 03/21/22 16:00: Sodium 130 L, Potassium 4.5, BUN 12, Creatinine 1.85 H, Glucose 192 H 03/21/22 16:00: WBC 8.5 D, Hgb 8.6 L, Hct 25.9 L, Plt Count 358 Assessment And Plan - Plan Assessment and recommendation: BPH with LUTS and gross hematuria s/p TURP with Afib on Xarelto complicating the post-op course with bleeding and hyponatremia of uncertain etiology, now anemic, with cardiac comorbidities and DM2 making his risk of CVA/AMI high per Dr. Mantilla, making continued anticoagulant therapy paramount. Thus, given his continuing slow decline in his hematocrit, to mitigate against the potential for future transfusion needed, I recommended operative evaluation with cystoscopy, clot evacuation as necessary, and fulguration. He has been kept NPO p MN in anticipation of this eventuality. Once stable with no ongoing hematuria, we will attempt to resume anticoagulation, likely Thursday or Thursday a.m., this time with Lovenox 50 to 60 mg every 12 hours as recommended by his primary health organisation manager, Dr. Mantilla, and we will continue to observe for any recurrence of bleeding. Continue Ceftriaxone while inpatient pending culture results and sensitivities. Iron supplementation per hospitalist and transfusion as they assess appropriate if Hgb drops <8.0. Appreciate hospitalist service and care. Discharge Plan: Home Plan to discharge in: Greater than 2 days Physician Review: Patient Assessed, Agree with Above Assessment and Plan Critical Care: No Time Spent Managing PTS Care (In Minutes): 90
[2022-03-22] MEDS ORDERED: FENTANYL CITR 100 MCG/2 ML ONE (12:01)
[2022-03-22] MEDS ORDERED: propofoL 200 MG/20 ML VIAL IV ONE (12:01)
[2022-03-22] MEDS ORDERED: PHENAZOPYRIDINE 100MG TAB PO ONE ×2 (13:59→14:16)
[2022-03-22] MEDS ORDERED: CODEINE 30MG/APAP 300MG TAB PO PRN ×2 (13:59→14:02)
[2022-03-22] MEDS ORDERED: OPIUM/BELLADONNA SUPPOS (30-16.2 MG) PR ONE (14:08)
[2022-03-22] MEDS: SOD FERRIC GLUC COMPLX/SUCROSE 125 MG in NA CHLORIDE 0.9% 100 ML IV SCH (14:47)
[2022-03-22 15:30] LABS: Magnesium 1.7 mg/dL (1.8-2.4)
--- NOTE | 2022-03-22 15:32 | OP ---
Surgeon: LJ FRANCO Preoperative Diagnoses: 1.Refractory gross hematuria. 2.Coronary artery disease with atrial fibrillation requiring anticoagulant therapy. 3.Clot urinary retention. Postoperative Diagnoses: 1.Refractory gross hematuria. 2.Coronary artery disease with atrial fibrillation requiring anticoagulant therapy. 3.Clot urinary retention. Principle Procedures: 1.Cystoscopy. 2.Clot evacuation. 3.Transurethral resection of formed bladder clot. 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 Indication For Procedure: See the progress note dated 03/22/2022 relative to the indication for proc edure. Procedure In Detail: The patient was consented in the preoperative holding area before being transfe rred to the operative suite where general anesthesia was induced using an LMA. He was then treated w ith ceftriaxone IV antimicrobial prophylaxis on the floor, and pneumo boots were provided for DVT pro phylaxis. He was placed in the lithotomy position, padded and secured to the table appropriately. H is genitalia were cleansed with Hibiclens after the indwelling urethral Raman catheter was removed. He was then draped in a standard fashion, and the case was begun. Using a 26-Tamazight resectoscope, th e bladder was entered after the urethra was traversed. Within the bladder, there was significant for med clot, and I began by using the Ellik evacuator to remove any of the softer clot within the bladde r. Once this was done, there was significant size, approximately 5-6 cm of formed clot within the bl adder that would not irrigate and evacuated using the Ellik evacuator. As a result, I had to avoid t he bipolar loop to resect the clot from within his bladder and remove the fragments. Once this was d one, I then surveyed the prostatic fossa and identified multiple sources of slight venous ooze. I th en began careful fulguration of each of those clots throughout the entirety of the prostatic fossa. Additionally, there was some slight residual prostatic tissue at few points throughout and some of th e formed clot was stuck within the prostatic urethra anteriorly. All of this was resected in order t o ensure a completely patent channel and any residual adenoma was likewise resected. I then fulgurat ed the entirety of the prostatic fossa to ensure absolute hemostasis and no residual venous ooze even with the bladder completely decompressed and no fluid influx going in. In the end, all prostatic ch ips and clot particles were removed and evacuated from his bladder, and the prostatic fossa was compl etely hemostatic when the bladder was completely decompressed. As a result, I refilled his bladder w ith saline and placed a 22-Tamazight 3-way Raman catheter with ease. 30 cc of sterile water was placed in the balloon, and the catheter was connected to slow drip CBI with clear efflux. The catheter was secured to his left upper thigh using a StatLock, and he was taken out of the lithotomy position. He was then awakened from general anesthesia, transferred to a stretcher, and then transferred to the ecovery room in good condition. Complications: None. Discharge Disposition: As previously discussed in the progress note from today preop, he will be obs erved overnight for any recurrence of hematuria. If none is noted, we will have his urethral Raman c atheter removed tomorrow midday after he is given a dose of Lovenox to ensure no recurrent bleeding. We will target that Lovenox administration to occur around 8 a.m. with anticipated catheter removal around 11 a.m. or noon. Then, if there is no recurrence of gross hematuria, the catheter may be andre pipo and the patient may be allowed to continue to void. LIANG/MODL Voice ID: [id number] Report ID: [id number]
[2022-03-22] MEDS ORDERED: TAMSULOSIN 0.4 MG SR CAP PO SCH (21:00)
[2022-03-22] MEDS ORDERED: ATORVASTATIN 40 MG TAB PO SCH (21:00)
[2022-03-22] MEDS ORDERED: DOCUSATE NA 100 MG CAP PO ONE (21:08)
[2022-03-23 01:15] LABS: Hematocrit 24.2 % (39.6-49.0)
[2022-03-23 06:26] LABS: Albumin 2.7 g/dL (3.4-5.0); Bilirubin Total 0.5 mg/dL (0.2-1.0); Potassium 4.9 mmol/L (3.5-5.1); Protein, Total 6.2 g/dL (6.4-8.2)
[2022-03-23] MEDS: INSULIN -REGULAR HUMAN 50 UNIT/0.5 ML ML SQ SCH ×3 (07:30→16:30)
--- NOTE | 2022-03-23 07:40 | P.CNS ---
Date of Consult: 03/23/22 Reason for Consult: BROOKLYNN/ CKD Requesting Physician: Sulema Flores Chief Complaint: hematuria History of Present Illness: Mr. Gallgeo is a 76 yo M with T2DM, Hypertension, CAD s/p cardiac stent, Atrial fibrillation on Xarelto, CKD, HLD, s/p recent TURP procedure who presents with hematuria and inability to urinate. Patient restarted Xarelto on Thursday, and began to have hematuria and dysuria. Then last night, he was unable to urinate. Last dose of Xarelto was Thursday, but hematuria has continued. Urology at bedside and started continuous bladder irrigation. This is the second time patient has had this complication since surgery. Previously, patient was transferred to [place] for urology, and required blood transfusion due to blood loss from hematuria. Patient went home with currie, which was removed and patient was able to urinate at that time with no complication until restarting Xarelto again. Patient's larriman helper will be contacted to determine plan for Xarelto. 09:47 This 76 yrs old Male presents to ER via EMS with complaints of Urinary rn Retention. 09:47 The patient presents with urinary symptoms, retention, unable to void, Last void was rn yesterday. Onset: The symptoms/episode began/occurred 2 day(s) ago. Modifying factors: The symptoms are alleviated by nothing, the symptoms are aggravated by urinating. Associated signs and symptoms: Pertinent positives: dysuria, hematuria, Pertinent negatives: fever, nausea, vomiting. Severity of symptoms: At their worst the symptoms were moderate, in the emergency department the symptoms are unchanged. The patient has experienced similar episodes in the past. The patient has been recently seen by a physician:. Pt reports recent admission to hospital for inability to urinate, had currie catheter placed at that time, currie catheter removed by Dr. Diaz this week, was able to urinate, noticed blood in urine for the last 2 days and now unable to urinate. Last urinated last night. NO fever/chills. Reports currently taking bactrim for 2 days for possible UTI. Also, held xarelto and aspirin when bleeding started, last dose 2 nights ago.. Allergies No Known Allergies Allergy (Verified 03/21/22 23:22) Home medications list reviewed: Yes Home Medications: Atorvastatin Calcium [Lipitor] 40 mg PO BEDTIME 08/24/17 Glimepiride 2 mg PO DAILY 08/24/17 Irbesartan [Avapro] 300 mg PO DAILY 08/24/17 Metoprolol Succinate [Toprol Xl] 25 mg PO DAILY 08/24/17 Rivaroxaban [Xarelto] 20 mg PO BEDTIME 08/24/17 Tamsulosin [Flomax*] 0.4 mg PO BEDTIME 08/24/17 Aspirin [Aspirin EC 81 MG] 1 tab PO DAILY 02/20/22 Sodium Chloride Tab [Sodium Chloride*] 1 gm PO BID #60 tab 02/26/22 Bumetanide 0.5 mg PO DAILY 03/21/22 Ferrous Sulfate 325 mg PO SEECOM 03/21/22 Sulfamethoxazole/Trimethoprim [Sulfamethoxazole-Tmp Ds Tablet] 1 each PO BID 03/21/22 - Past Medical/Surgical History Diabetic: Yes -: Diabetes -: HTN -: HLD -: BPH -: CAD -: CKD -: atrial fibrillation on xarelto -: Stent placement 10 yrs ago -: TURP - Social History Smoking Status: Current every day smoker Alcohol use: No CD- Drugs: No Caffeine use: No Place of Residence: Home Review of Systems 10-point ROS is otherwise unremarkable General: Weakness Cardiovascular: Edema Genitourinary: Hematuria Physical Examination Temp Pulse Resp BP Pulse Ox 97.7 F 106 H 17 107/57 L 96 03/23/22 04:00 03/23/22 04:00 03/23/22 04:00 03/23/22 04:00 03/23/22 04:00 General: In no apparent distress, Cooperative HEENT: Atraumatic Neck: Supple Respiratory: Normal air movement Cardiovascular: Regular rate/rhythm, Edema Gastrointestinal: Soft and benign, Non-distended Musculoskeletal: No clubbing, No contractures Integumentary: No rashes, No cyanosis Neurological: Normal speech Blood work reviewed in the chart. Conclusions/Impression: BROOKLYNN likely due to hypovolemia & urinary obstruction/ bladder clot CKD III with proteinuria -No NSAIDs -Continue gentle IVF with NS Hematuria noted in the prostatic fossa complicated by Xarelto for Afib -Cystoscopy with cauterization by Dr. Diaz Hyponatremia -Continue gentle IVF with NS -Encourage nutrition Hypomagnesemia -Replete prn HTN with CKD -Continue Metoprolol -Continue Valsartan LE Edema -Daily weight DM II with CKD -RISS Moderate malnutrition -Encourage nutrition Anemia in chronic illness and blood loss Iron Deficiency -IV iron as ordered -Monitor H&H BPH with LUTS -Continue Flomax Thank you kindly for the consultation.
[2022-03-23] MEDS ORDERED: NA CHLORIDE 0.9% 50 ML ONE (08:30)
[2022-03-23] MEDS ORDERED: CEFTRIAXONE 1000 MG/VIAL ONE (08:31)
[2022-03-23] MEDS: SOD FERRIC GLUC COMPLX/SUCROSE 125 MG in NA CHLORIDE 0.9% 100 ML IV SCH (09:00)
[2022-03-23] MEDS: OXYBUTYNIN CHLORIDE 5 MG TAB PO SCH (09:15)
[2022-03-23] MEDS: SODIUM CHLORIDE 1 GM TAB PO SCH (09:15)
[2022-03-23] MEDS: METOPROLOL XL 25 MG TAB PO SCH (09:15)
[2022-03-23] MEDS: VALSARTAN 160 MG TAB PO SCH (09:15)
[2022-03-23] MEDS: CEFTRIAXONE 1,000 MG in NA CHLORIDE 0.9% 50 ML IVPB SCH (09:16)
[2022-03-23] MEDS: NA CHLORIDE 0.9% 1,000 ML IV SCH (10:27)
[2022-03-23 11:39] LABS: Hematocrit 25.3 % (39.6-49.0)
[2022-03-23 11:51] VITALS: O2SAT 98
[2022-03-23] MEDS ORDERED: ENOXAPARIN 40 MG/0.4 ML SQ SCH (12:09)
--- NOTE | 2022-03-23 12:13 | P.PN ---
Subjective Date of Service: 03/23/22 Chief Complaint: hematuria Subjective: No new changes, New changes (Status post repeat cystoscopy yesterday with fulguration of prostate bed adenoma as well as completion of TURP -No more bleeding via Raman now Patient feels fine, feels ready and anxious to go home) Physical Examination - Vital Signs Temperature: 98.2 F Blood Pressure: 126/69 Pulse: 99 Respirations: 18 Pulse Ox (%): 98 - Studies Microbiology Data (last 24 hrs): 03/21/22 09:25 Catheterized Urine [place] Count - Final No growth. 03/21/22 09:25 Catheterized Urine - Final No growth. Assessment And Plan Physician Review: Patient Assessed, Agree with Above Assessment and Plan Physician Review Additional Text: - Physical Exam General: Alert, In no apparent distress HEENT: Atraumatic, Normocephalic Respiratory: Clear to auscultation bilaterally, Normal air movement Cardiovascular: No edema, Regular rate/rhythm Capillary refill: <2 Seconds Gastrointestinal: Normal bowel sounds, Soft and benign Musculoskeletal: No clubbing, No swelling Integumentary: No rashes, No breakdown Neurological: Normal speech, Normal affect Lymphatics: No axilla or inguinal lymphadenopathy Urinary: Raman catheter, off CBI, clear urine in Raman Assessment Hematuriarecurrent with reinitiation of anticoagulation after post TURP 6 weeks agostatus post repeat cystoscopy with evacuation of clot/TURP completion with fulguration of prostate bed Atrial fibrillation on xarelto-OH HOLD CAD with stent UTI History of hyponatremia Type 2 diabetes mellitus Hypertension Hyperlipidemia Plan Resolved hematuria With dose Lovenox now and monitor for recurrent bleeding today If no bleeding will discharge home with Lovenox for 1 week and to resume Xarelto after 1 week if no recurrence of bleeding Creatinine remained stable at 1.6 Can DC IV fluid now Serum sodium controlled continue salt tabs Status post IV iron dosing, continue p.o. iron Hemoglobin improving to 8.4 - Dr. Mullins (cardiology) contacted - feels patient's CVA risk is too high to discontinue xarelto. Hold lovenox until urine is clear. Plan for Lovenox 50-60 mg q12 hours while inpatient and for 2-3 weeks thereafter if patient does not bleed while on lovenox -Hold aspirin for now until hematuria clears -Presumed UTI, no growth urine culture to date, continue empirical Rocephin for nowBP due to hematuria rather than actual UTI Serum sodium controlled, continue salt tabs, follow with Dr. Lowry - sliding scale insulin and accuchecks DVT ppx: SCDs Code status: full Discharge Plan: Home Plan to discharge in: 48 Hours 03/23/22 12:11
--- NOTE | 2022-03-23 12:23 | P.DS ---
Admission Date: 03/21/22 Discharge Date: 03/23/22 Disposition: ROUTINE DISCHARGE Discharge Condition: FAIR Reason for Admission: hematuria Brief History of Present Illness: Hospital course Patient with recent TURP 6 weeks ago presented with recurrent hematuria after restarting Xarelto. He was started on CBI for irrigation but still persisted hematuria noted. He was noted with iron deficiency and started on IV iron loading. Patient was reevaluated by urology and taken for cystoscopy with evacuation of clot from the prostatic bed as well as fulguration and completion of TURP done . Bleeding resolved. Hemoglobin noted improved to 8.4. Cardiology was discussed with who recommended high risk for CVA given patient baseline A. fib and wanting patient to be on Lovenox every 12 for 2 weeks and if patient does not bleed restart Xarelto. Urology recommended trial with Lovenox to see if bleeding before removal of Raman. Patient however wanted to leave Raman for the next 3 to 4 days until he sees urology as outpatient. He was agreeable to trial of Lovenox for the next 1 week. Of note patient had chronic hyponatremia which has been stable with sodium twice daily use. History of sodium remained stable at around 1 30-1 34. He was evaluated by his threader operator while inpatient. No changes were made. His creatinine remained stable at 1.6-1.7 - Physical Exam General: Alert, In no apparent distress HEENT: Atraumatic, Normocephalic Respiratory: Clear to auscultation bilaterally, Normal air movement Cardiovascular: No edema, Regular rate/rhythm Capillary refill: <2 Seconds Gastrointestinal: Normal bowel sounds, Soft and benign Musculoskeletal: No clubbing, No swelling Integumentary: No rashes, No breakdown Neurological: Normal speech, Normal affect Lymphatics: No axilla or inguinal lymphadenopathy Urinary: Raman catheter, off CBI, clear urine in Raman Hospital Course: Hospital course Patient with recent TURP 6 weeks ago presented with recurrent hematuria after restarting Xarelto. He was started on CBI for irrigation but still persisted hematuria noted. He was noted with iron deficiency and started on IV iron loading. Patient was reevaluated by urology and taken for cystoscopy with evacuation of clot from the prostatic bed as well as fulguration and completion of TURP done . Bleeding resolved. Hemoglobin noted improved to 8.4. Cardiology was discussed with who recommended high risk for CVA given patient baseline A. fib and wanting patient to be on Lovenox every 12 for 2 weeks and if patient does not bleed restart Xarelto. Urology recommended trial with Lovenox to see if bleeding before removal of Raman. Patient however wanted to leave Raman for the next 3 to 4 days until he sees urology as outpatient. He was agreeable to trial of Lovenox for the next 1 week. Of note patient had chronic hyponatremia which has been stable with sodium twice daily use. History of sodium remained stable at around 1 30-1 34. He was evaluated by his threader operator while inpatient. No changes were made. His creatinine remained stable at 1.6-1.7 - Physical Exam General: Alert, In no apparent distress HEENT: Atraumatic, Normocephalic Respiratory: Clear to auscultation bilaterally, Normal air movement Cardiovascular: No edema, Regular rate/rhythm Capillary refill: <2 Seconds Gastrointestinal: Normal bowel sounds, Soft and benign Musculoskeletal: No clubbing, No swelling Integumentary: No rashes, No breakdown Neurological: Normal speech, Normal affect Lymphatics: No axilla or inguinal lymphadenopathy Urinary: Raman catheter, off CBI, clear urine in Raman Vital Signs/Physical Exam: Temp Pulse Resp BP Pulse Ox 98.2 F 99 H 18 126/69 98 03/23/22 12:13 03/23/22 12:13 03/23/22 12:13 03/23/22 12:13 03/23/22 12:13 Laboratory Data at Discharge: WBC 8.8 K/uL (4.3-10.9) 03/22/22 06:05 Hgb 8.4 g/dL (13.6-17.9) L 03/23/22 11:13 Hct 25.3 % (39.6-49.0) L 03/23/22 11:13 Plt Count 313 K/uL (152-406) 03/22/22 06:05 PT 16.0 SECONDS (9.5-12.5) H 03/21/22 16:00 INR 1.44 03/21/22 16:00 APTT 42.5 SECONDS (24.3-36.9) H 03/21/22 16:00 Sodium 131 mmol/L (136-145) L 03/23/22 05:09 Potassium 4.9 mmol/L (3.5-5.1) 03/23/22 05:09 BUN 14 mg/dL (7-18) 03/23/22 05:09 Creatinine 1.66 mg/dL (0.55-1.3) H 03/23/22 05:09 Glucose 91 mg/dL (74-106) 03/23/22 05:09 Phosphorus 3.4 mg/dL (2.5-4.9) 03/22/22 06:05 Magnesium 1.8 mg/dL (1.8-2.4) 03/23/22 11:13 Total Bilirubin 0.5 mg/dL (0.2-1.0) 03/23/22 05:09 AST 10 U/L (15-37) L 03/23/22 05:09 ALT 15 U/L (12-78) 03/23/22 05:09 Alkaline Phosphatase 72 U/L (45-117) 03/23/22 05:09 Home Medications: Atorvastatin Calcium [Lipitor] 40 mg PO BEDTIME 08/24/17 Glimepiride 2 mg PO DAILY 08/24/17 Irbesartan [Avapro] 300 mg PO DAILY 08/24/17 Metoprolol Succinate [Toprol Xl] 25 mg PO DAILY 08/24/17 Tamsulosin [Flomax*] 0.4 mg PO BEDTIME 08/24/17 Aspirin [Aspirin EC 81 MG] 1 tab PO DAILY 02/20/22 Sodium Chloride Tab [Sodium Chloride*] 1 gm PO BID #60 tab 02/26/22 Bumetanide 0.5 mg PO DAILY 03/21/22 Ferrous Sulfate 325 mg PO SEECOM 03/21/22 Physician Discharge Instructions: Hold Xarelto for 1 week then restart after discussion with Dr Diaz Diet: ADA Activity: Ad kallie Followup: Xavier Diaz [ACTIVE - CAN ADMIT] - Time spent managing pt's care (in minutes): 35
[2022-03-23] MEDS ORDERED: Enoxaparin 120 MG/0.8 ML SYR SQ SCH (13:00)
[2022-03-23] MEDS ORDERED: ENOXAPARIN 80 MG/0.8 ML SQ SCH (13:00)
[2022-03-23] MEDS ORDERED: ENOXAPARIN 60 MG/0.6 ML SQ SCH (13:00)
[2022-03-23 17:15] VITALS: BP 155/90; TEMP 98.1
--- NOTE | 2022-03-25 12:42 | CON ---
Reason For Consultation: Gross hematuria. History Of Present Illness: Mr. Gallego is a 76-year-old gentleman with multiple medical comorbidit ies including hyponatremia, cardiac comorbidity, COPD, and atrial fibrillation, on Xarelto, who under went transurethral resection of the prostate using the bipolar device approximately 2 to 3 weeks ago, and postoperatively did well and was discharged home with relatively clear urine. He resumed his Xa relto a few days later as recommended by his dehydration unit operator and affirmed by my discharge instructions w ith him, and he promptly developed progressively worsening gross hematuria with clot retention. This caused progressive anemia requiring him to receive 1 unit of packed red blood cells, and he was leigh sferred to [place] for management as I was out of the state at the time. Dr. Vazquez in [facility] and performed manual irrigation and clot evacuation as well as initiated CBI, and he was admitted for a couple to a few days until the hematuria resolved. He was discharged home with a catheter in [facility], off the Xarelto, and with salt tablets to resume taking for his hyponatremia. He previously had a voided taking the salt tablets thinking they caused him to have altered mental status, but in fact it was likely his hyponatremia that was causing the altered mental status. He then saw me in followup in the office last week where his urine was clear with the catheter in place and there was no evidenc e of blood. We communicated with his dehydration unit operator, Dr. Fonseca, who again recommended resuming the X arelto in 3 days. I instead recommended he hold off for what amounted to 5 days to avoid resuming th e Xarelto over the weekend where I would be unable to assist him in the office if he had an issue. e then resumed the Xarelto this past Thursday and by Thursday and Thursday. He called the office compl aining of some pink urine. It was not significantly bloody at this time and there were no clots, but it had become pink/cranberry colored. We counseled him to drink plenty of juices like Gatorade and other salt containing beverages because of his hyponatremia, but to maintain his volume and urine pro duction to decrease the risk of clot. However, despite that, today because of progressive reddening of his urine and difficulty voiding due to a clot, he went to the emergency department for evaluation . I saw him in the emergency department and they had already placed a hematuria catheter that was barbara antonio 24-[place]. I am informed by the nurse that placed the catheter that it passed with ease and she had no difficulty getting it in. They had placed 10 cc of sterile water in the balloon, and I asses sed the catheters mobility, found it to be easily mobile within the urethra, and I instilled another 10 cc of sterile water into the balloon for a total of 20 cc. I then assessed the circumstance by pe rforming bladder irrigation and ultimately initiating CBI. Bladder Irrigation Procedure Note: Using saline and a catheter tip syringe, I irrigated his bladder initially gently and then more vigorously with over 1000 cc of normal saline. I only removed one sma ll clot, and after 120 to 180 cc of irrigant fluid, the returning irrigant was light pink to clear. As a result, I continued to irrigate him this time more aggressively to ensure no formed clots were s tuck to the wall of his bladder, and once this was confirmed, I then this connected him to continuous bladder irrigation using normal saline at a slow to moderate drip. The urine on slow to moderate dr ip CBI was light pink to clear. I then communicated with Dr. Fonseca, his dehydration unit operator again about the circumstance. I explained my concern about resuming the Xarelto given his recurrent propensity to bleed. Initially, Dr. Fonseca r ecommended resuming the Xarelto again after 3 days, but I instead inquired whether we could get away with Lovenox instead of the Xarelto. Because he felt his risk of CVA was high given his medical alex rbidities, he did want him on some definite anticoagulant therapy. He felt Lovenox would be sufficie nt, but that if treatment doses at 1 mg/kg were given, especially given his obesity, he would likely bleed in a similar fashion as the Xarelto. As a result, he recommended instead 50 mg to 60 mg of Katiana enox administered q.12 hours to provide stroke prophylaxis. Assessment And Recommendations: A 76-year-old gentleman with multiple medical comorbidities and card iac comorbidities with atrial fibrillation, on Xarelto, with recurrent postoperative prostatic urethr al bleeding and gross hematuria complicated by exacerbation of his chronic hyponatremia. I am recommending the patient be admitted overnight and potentially for the next couple of days for c ontinuous bladder irrigation using normal saline to keep the urine light pink to clear. The nurses m ay titrate the CBI just to keep the urine light pink as necessary. Once the urine has remained consi stently clear, the CBI may be clamped, and if the urine remains clear with the CBI clamped for severa l hours, then likely on Thursday, we will have the patient take or be initiated on Lovenox 50 to 60 mg q.12 hours subcutaneous stroke prophylaxis. We will then observe him off CBI with him getting the Lo venox for recurrent gross hematuria. As long as no significant recurrent gross hematuria and no need to irrigate his bladder or resume CBI, we will then discharge the patient home either with or withou t the catheter, but continuing Lovenox for at least the next 2 to 3 weeks while his prostatic fossa h as an opportunity to seal and stop the oozing causing the gross hematuria. I will follow up with the patient in the morning to assess his current gross hematuria status on CBI. If persistent significant oozing is noted, I will likely recommend operative cystoscopy and fulgura tion to completely stop the bleeding. As a result, we will request that he be made n.p.o. after midn ight until I can evaluate him and determine the potential operative need tomorrow morning. We also will treat him with ceftriaxone for IV antibiotic prophylaxis in case the positive nitrites s een in his urine is truly reflective of infection and not just the presence of the Azo/Pyridium that he may or may not have taken. The patient is uncertain. I also recommend oxybutynin 5 mg q.12 hours to minimize any bladder spasms with the catheter and irri gation in place to also diminish the gross hematuria propagation. If the patient is on long-acting p otassium supplementation, then a belladonna and opium suppository may be used as an alternative. LIANG/MODL Voice ID: [id number] Report ID: [id number]
== END 2022-03-23 18:26 | disposition home or self-care (01) | DRG 666 ==
LOC: ER 07:39 → ERHOLD 16:18 → 2ND 21:38
PROVIDERS: ADMIT Internal Medicine; ATTEND Internal Medicine
PROC: 3C1ZX8Z Irrigation of Indwelling Device using Irrigating Substance, External Approach (ICD-10-PCS; 2022-03-21)
PROC: 0V508ZZ Destruction of Prostate, Via Natural or Artificial Opening Endoscopic (ICD-10-PCS; 2022-03-22)
PROC: 0VB08ZZ Excision of Prostate, Via Natural or Artificial Opening Endoscopic (ICD-10-PCS; 2022-03-22)
PROC: 0TCB8ZZ Extirpation of Matter from Bladder, Via Natural or Artificial Opening Endoscopic (ICD-10-PCS; principal; 2022-03-22 11:30)
DX: R31.0 Gross hematuria (principal); E87.1 Hypo-osmolality and hyponatremia; N39.0 Urinary tract infection, site not specified; N17.9 Acute kidney failure, unspecified; E61.1 Iron deficiency; I48.91 Unspecified atrial fibrillation; I25.10 Atherosclerotic heart disease of native coronary artery without angina pectoris; E78.5 Hyperlipidemia, unspecified; I12.9 Hypertensive chronic kidney disease with stage 1 through stage 4 chronic kidney disease, or unspecified chronic kidney disease; E11.22 Type 2 diabetes mellitus with diabetic chronic kidney disease; D29.1 Benign neoplasm of prostate; N18.30 Chronic kidney disease, stage 3 unspecified; E83.42 Hypomagnesemia; R33.8 Other retention of urine; Z95.5 Presence of coronary angioplasty implant and graft; F17.210 Nicotine dependence, cigarettes, uncomplicated; Z20.822 Contact with and (suspected) exposure to COVID-19
CPT/HCPCS: 36415; 51700; 51702; 80048; 80053; 81003; 81015; 82947; 83540; 83735; 84100; 85014; 85018; 85025; 85610; 85730; 86850; 86900; 86901; 87086; 87088; 88305; 96374; 99285; J0330; J1650; J2704; J2916; J3010; J7030; J7040; U0003